=== PATIENT | female | born 1935 | race Caucasian/White ===

== ENCOUNTER → 2017-12-14 07:53 | Outpatient (BNVA) | payer MEDICARE, SELFPAY | PROVIDERS: PCP Family Medicine; Referring Provider Family Medicine; Visit Provider Surgery | DX: R69 Illness, unspecified (principal) ==

== ENCOUNTER 2017-12-14 09:03 | Day surgery (SDC) | payer MEDICARE, SELFPAY ==
[2017-12-14 09:36] VITALS: BP 133/74; PULSE 89; RESP 18; TEMP 37; O2SAT 92
[2017-12-14] MEDS: Lactated Ringers 1,000 ML 30 ML IV (09:45)
--- NOTE | 2017-12-14 10:32 | W.PM.DSUDISC ---
Discharge Plan Disposition Patient Disposition: HOME Condition: Good Discharge Details Reason For Visit: Colorectal cancer screening Attending Provider: Fabien Glover Primary Care Provider: Helen Montez Home Meds and New Rx's Prescriptions: Continue aspirin 81 MG tablet,delayed release (DR/EC) 81 mg PO DAILY RF: 0 ibuprofen 200 MG tablet 200 mg PO DAILY PRNRF: 0 psyllium husk 480 GM powder 1 - 2 appful PO DAILY PRNQty: 1 RF: 0 fluticasone 16 GM spray,suspension 2 puff NS DAILY Qty: 3 RF: 4 pravastatin 20 MG tablet 20 mg PO DAILY Qty: 90 RF: 4 fluticasone-salmeterol [Advair Diskus] 1 EACH blister with device 1 puff Inhalation BID Qty: 3 RF: 4 levalbuterol tartrate [Xopenex HFA] 15 GM HFA aerosol inhaler 1 - 2 puff Inhalation QID PRNQty: 1 RF: 6 diphenhydramine HCl 25 MG capsule 1 tab PO PRN PRNRF: 0 Discharge Instructions Instructions: Colonoscopy (DC) Activity:: Activity as Tolerated Diet:: As Tolerated Discharge Orders Discharge Orders: Discharge Order (Routine); Ordered 12/14/17 Ordered By: Fabien Glover DS: Diagnosis Discharge Diagnosis (1) Personal history of colon cancer: Status: Acute Asessment and Plan: Plan for colonoscopy for colorectal cancer screening
--- NOTE | 2017-12-14 10:36 | COLE_ITS ---
Date of service: 12/14/17 Time of Service: 10:34 Colonoscopy Report Date of procedure: 12/14/17 Pre-op diagnosis general: Personal history cancer of the colon Post-op diagnosis procedure note: other (1. Mild sigmoid diverticulosis 2. Sigmoid colon polyp) Procedure: Colonoscopy to the ileocolonic anastomosis Surgeon: Fabien Glover Anesthesia proc note operative: MAC (Salom[place] Cedeno CRNA ASA 3; Mallampati class II) Estimated blood loss (mL): 1 Pathology: other (Sigmoid colon polyp) Complications: None Disposition: same day Indications: 82-year-old female presenting for colorectal cancer screening by colonoscopy. She has a personal history of colon cancer and personal history of colon polyps. She has been asymptomatic since her last colonoscopy. She has no family history of colorectal cancer. Prep: Miralax/Dulcolax (Prep quality excellent) Findings: In examining the colon from cecum to anus, the patient was noted to have some mild sigmoid diverticulosis, and a single polyp was identified in the sigmoid colon it was less than 1 cm in greatest diameter. Polyp was removed by cold biopsy forceps. No other abnormalities were noted during the colonoscopy. Procedure Description: The patient was seen in the day surgery waiting area. Her identification was confirmed, and procedure check. She was then brought to the procedure room. Monitoring for telemetry, blood pressure, oxygen saturation, and end tidal CO2 monitoring were applied. An appropriate time out was performed to confirm, identification, allergies, medication, procedure, was performed. Sedation was titrated for affect by the [employer] VEHIC[employer] LICENSE CLERK; Once adequate sedation was achieved, I performed a inspection of the external perineum, and a digitial rectal examination. No significant external abnormalities were noted. On digital rectal examination, there was no blood, no masses, good rectal tone. I advanced the colonoscope from the anus to the ileocolonic anastomosis. The anastomosis was recognized by the villi of the small bowel. The scope was then withdrawn in circumferential manner from the anastomosis to the rectum. In examining the colon the patient was noted to have mild sigmoid diverticulosis, and a small less than 1 cm polyp was found in the sigmoid colon and removed by cold biopsy forceps. The scope was then withdrawn into the rectum, and retroflexed. No abnormalities were noted of the rectum or anorectal junction. The scope was then withdrawn, terminating the procedure. There were no complications during the procedure, and the patient tolerated the procedure well. She was returned to the day surgery recovery area in good condition. Plan: Will continue with routine screening for colorectal cancer according to current consensus guidelines, which is currently 10 years.
--- NOTE | 2017-12-14 10:55 | BOWEL_PTH ---
PATIENT: Araceli Hurt LOC: [facility] U#:[id number] AGE/SX: 82/F ROOM: RE12/14/[address]: Fabien Glover DO : 1935 BED: DIS: 12/14/2017 SPEC #: [id number] RECD: 12/14/17 12:54 STATUS: JUAN REQ #: [id number] JAMEE: 12/14/17 10:[address]: Fabien Glover DEPT: Surgical Specimen RECD BY: Sonja Gomez ENTERED: 12/14/17 12:54 SP TYPE: Bowel OTHR DR: Helen Montez MD Tissues: 1 - BIOPSY BOWEL Procedures: GROSS AND MICRO LEVEL 4 Comments: [id number]
[2017-12-14 11:30] VITALS: BP 117/64; PULSE 62; RESP 16; TEMP 36.3; O2SAT 98
== END 2017-12-14 12:01 | disposition home or self-care (01) ==
PROVIDERS: PCP Family Medicine; Visit Provider Surgery
PROC: 0DJD8ZZ Inspection of Lower Intestinal Tract, Via Natural or Artificial Opening Endoscopic (ICD-10-PCS; CPT 45378; principal; 2017-12-14 11:00)
DX: Z12.11 Encounter for screening for malignant neoplasm of colon (principal); Z85.038 Personal history of other malignant neoplasm of large intestine; K57.30 Diverticulosis of large intestine without perforation or abscess without bleeding; K63.5 Polyp of colon
CPT/HCPCS: 45380; 88305

== ENCOUNTER 2018-02-16 11:44 | Outpatient (CLI) | payer MEDICARE, SELFPAY ==
[2018-02-16 13:22] LABS: Absolute Basophil Count 0.03 k/cumm (0.0-0.2); Absolute Eosinophil Count 0.27 k/cumm (0.0-0.7); Absolute Lymphocyte Count 0.96 k/cumm (1.2-3.4); Absolute Monocyte Count 0.47 k/cumm (0.11-0.7); Absolute Neutrophil Count 3.61 k/cumm (1.2-6.7); Basophils % 0.6; Eosinophils % 5.1; HCT 40.6 % (36.0-46.0); HGB 13.4 g/dL (12.0-15.5); Mean Corpuscular Hemoglobin 31.9 pg (27.0-33.0); Mean Corpuscular Volume 96.7 fL (80-95); Mean Platelet Volume 10.2 fL (8.0-11.0); Monocytes % 8.8; Neutrophils % 67.5; Platelet Count 241 x1000/uL (130-400); RBC Distribution Width 12.3 % (11.7-14.6); White Blood Cell Count 5.34 k/cumm (4.4-10.8)
[2018-02-16 13:24] LABS: Bilirubin Negative (Negative); Blood Trace-intact (Negative); Clarity Clear; Glucose Negative (Negative); Ketones Negative (Negative); Leukocyte Esterase Small (Negative); Nitrite Negative (Negative); Urobilinogen 0.2 EU/dL (Up TO 0.2)
[2018-02-16 13:51] LABS: Bacteria Few HPF (Negative); C & S Indicated? Yes; Casts Negative LPF (Negative); Crystals Negative HPF (Negative); Epithelial Cells Few HPF (Negative); Mucus Negative (Negative); Other Cells Few Renal (Negative); RBC 0-2 (0-2)
[2018-02-16 13:52] LABS: ALT 15 U/L (12-78); AST 18 U/L (15-37); Albumin 3.8 g/dL (3.4-5.0); Alkaline Phosphatase 54 U/L (46-116); Anion Gap 9.6 mmol/L (3-11); BUN 11 mg/dL (7-18); Bilirubin, Total 0.6 mg/dL (0.2-1.0); CO2 28.4 mmol/L (21.0-32.0); CREATININE 0.78 mg/dL (0.55-1.02); Calcium 9.4 mg/dL (8.5-10.1); Chloride 100 mmol/L (98-107); Glucose 91 mg/dL (70-100); Sodium 138 mmol/L (136-145); Total Protein 6.7 g/dL (6.4-8.2)
[2018-02-17 14:35] LABS: Albumin 56.9 % (55.8-66.1); Total Protein 6.4 g/dl (6.3-8.2)
== END 2018-02-16 12:04 ==
PROVIDERS: PCP Family Medicine; Visit Provider Family Medicine
DX: R63.4 Abnormal weight loss (principal); R35.0 Frequency of micturition
CPT/HCPCS: 80053; 87077; 81003; 81015; 84165; 85025; 87086; 87186

== ENCOUNTER 2018-02-22 01:21 | Outpatient (CLI) | payer MEDICARE, SELFPAY ==
--- NOTE | 2018-02-22 13:15 | DI.CT_ITS ---
SYMPTOMS/DIAGNOSIS: ABNORMAL WEIGHT LOSS, H/O COLON CA, R63.4 CT SCAN OF THE CHEST, ABDOMEN AND PELVIS: CT scan of the chest, abdomen and pelvis was performed according to protocol. There are no priors available for comparison. CT SCAN OF THE ABDOMEN AND PELVIS: The liver is normal in size. No suspicious hepatic masses are seen. There are tiny hypodensities seen in the liver. They are too small for further characterization, but likely reflect small cysts. The gallbladder is negative. No biliary ductal dilatation. The portal and superior mesenteric veins are patent. The pancreas, spleen and adrenal glands are unremarkable. The kidneys show normal and symmetric enhancement. No evidence of a solid renal mass or obstruction. The urinary bladder is intact. The reproductive organs are grossly unremarkable except for calcified uterine masses, likely reflecting fibroids. There is atherosclerosis of the abdominal aorta but no aneurysmal dilatation is seen. No significant abdominal or pelvic adenopathy, ascites or pneumoperitoneum is present. There are postsurgical changes of a bowel anastomosis in the right upper quadrant. The bowel shows no evidence of obstruction or inflammation. No evidence of a bowel mass is seen. Incidental note is made of a diverticulum arising from the second portion of the duodenum. Degenerative changes are seen in the spine. IMPRESSION: 1. No evidence of abdominal or pelvic metastatic disease. 2. No evidence of an acute abdomen. CT SCAN OF THE CHEST: There is atherosclerosis of the thoracic aorta. No aneurysm or dissection is seen. The heart size is within normal limits. No significant pericardial effusion is present. Coronary artery calcifications are present. There is no significant thoracic adenopathy. No pleural effusion or pneumothorax is identified. The lungs are clear. No pulmonary nodules or infiltrates are seen. The tracheobronchial tree is unremarkable. No aggressive osseous lesions are seen. IMPRESSION: No evidence of thoracic metastatic disease.
[2018-02-22] MEDS: Omnipaque 350 MG/ML 50 ML BTL IJ (14:57)
[2018-02-22] MEDS: Omnipaque 350 MG/ML 100 ML BTL IJ (14:58)
[2018-02-22] MEDS: Breeza Beverage 473 ML BTL PO (14:58)
== END 2018-02-22 01:41 ==
PROVIDERS: PCP Family Medicine; Visit Provider Family Medicine
DX: R63.4 Abnormal weight loss (principal); Z85.038 Personal history of other malignant neoplasm of large intestine; Z12.89 Encounter for screening for malignant neoplasm of other sites
CPT/HCPCS: 74177; 71260; J3490; Q9967

== ENCOUNTER 2018-09-28 00:17 | Outpatient (CLI) | payer MEDICARE, SELFPAY ==
--- NOTE | 2018-09-28 11:00 | DI.MAMMO_ITS ---
SYMPTOMS/DIAGNOSIS: SCREENING, Z12.31 MAMMOGRAM: Mammograms were interpreted according to the usual protocol including computer analysis with CAD system, tomosynthesis and C view imaging. The breast tissue is of moderate radiodensity. When compared with previous examinations, increased density in the lateral portion of the left breast is unchanged. There is no dominant mass. There are no suspicious calcifications. SUMMARY: No evidence of malignancy, Category I, yearly screening mammography is recommended. Breast density Category B. SA ASSESSMENT OF FINDINGS: Negative. Category 1. Patient will receive a letter notifying them of these results. BI-RADS category B. There are scattered areas of fibroglandular density.
== END 2018-09-28 00:37 ==
PROVIDERS: PCP Family Medicine; Visit Provider Family Medicine
DX: Z12.31 Encounter for screening mammogram for malignant neoplasm of breast (principal)
CPT/HCPCS: 77063; 77067

== ENCOUNTER 2018-12-08 11:54 | Outpatient (CLI) | payer MEDICARE, SELFPAY ==
[2018-12-08 12:32] LABS: Abs Immature Grans 0.01 k/cumm (0.0-0.09); Absolute Basophil Count 0.02 k/cumm (0.0-0.2); Absolute Eosinophil Count 0.11 k/cumm (0.0-0.7); Absolute Lymphocyte Count 0.92 k/cumm (1.2-3.4); Absolute Monocyte Count 0.28 k/cumm (0.11-0.7); Basophils % 0.5; Eosinophils % 2.5; HGB 13.5 g/dL (12.0-15.5); Immature Grans % 0.2; Lymphocytes % 21.2; Mean Corp. HGB Concentration 32.1 g/dL (32.0-36.0); Mean Corpuscular Volume 96.6 fL (80-95); Mean Platelet Volume 9.9 fL (8.0-11.0); Monocytes % 6.5; Neutrophils % 69.1; Platelet Count 266 x1000/uL (130-400); RBC 4.35 m/cumm (4.00-5.20); RBC Distribution Width 12.4 % (11.7-14.6); White Blood Cell Count 4.34 k/cumm (4.4-10.8)
[2018-12-08 15:00] LABS: ALT 27 U/L (14-59); AST 18 U/L (15-37); Alkaline Phosphatase 54 U/L (46-116); Anion Gap 8.3 mmol/L (3-11); BUN 9 mg/dL (7-18); Bilirubin, Total 0.4 mg/dL (0.2-1.0); CO2 29.7 mmol/L (21.0-32.0); CREATININE 0.72 mg/dL (0.55-1.02); Calcium 9.6 mg/dL (8.5-10.1); Calculated LDL 149 mg/dL; Chloride 102 mmol/L (98-107); Cholesterol 244 mg/dL (50-200); Glucose 104 mg/dL (70-100); HDL Cholesterol 80 mg/dL (40-60); Potassium 4.1 mmol/L (3.5-5.1); Sodium 140 mmol/L (136-145); Total Protein 6.9 g/dL (6.4-8.2); Triglyceride 78 mg/dL (30-150)
== END 2018-12-08 12:14 ==
PROVIDERS: PCP Family Medicine; Visit Provider Family Medicine
DX: R63.4 Abnormal weight loss (principal); E78.5 Hyperlipidemia, unspecified
CPT/HCPCS: 36415; 80053; 80061; 85025

== ENCOUNTER 2020-07-05 03:49 | Outpatient (CLI) | payer MEDICARE, SELFPAY ==
--- NOTE | 2020-07-05 11:10 | DI.MAMMO_ITS ---
EXAM: MAMMO SCREENING CLINICAL HISTORY: screening,Z12.39 TECHNIQUE: Mammograms were interpreted according to the usual protocol including computer analysis w [employer] CAD system, tomosynthesis and C-view imaging. COMPARISON: 2010 through 2018 FINDINGS: The breasts are composed of scattered fibroglandular densities, Breast Density category B. No suspicious masses or suspicious microcalcifications are seen. Vascular calcifications are inciden tally noted. No skin thickening or abnormal axillary lymph nodes are seen. There has been no significant change from prior exams. IMPRESSION: BI-RADS Category 1, Negative mammogram Continued annual screening should be based on patient's clinical status given age. Breast Density - Category B, scattered fibroglandular densities. A negative radiographic report should not delay biopsy if a dominant or clinically suspicious mass is present. Up to ten percent of cancers are not identified on mammography. A negative report may reinforce clinical impression. Adenosis and dense breasts may obscure an underlying neoplasm. False positive reports average 6 to 10%. Patient will receive a letter notifying them of these results.
== END 2020-07-05 04:09 ==
PROVIDERS: PCP Family Medicine; Visit Provider Family Medicine
DX: Z12.31 Encounter for screening mammogram for malignant neoplasm of breast (principal)
CPT/HCPCS: 77063; 77067

== ENCOUNTER 2020-09-25 03:46 | Outpatient (CLI) | payer MEDICARE, SELFPAY ==
[2020-09-25 09:01] LABS: Abs Immature Grans 0.01 10^3/uL (0.0-0.06); Absolute Basophil Count 0.05 10^3/uL (0.0-0.2); Absolute Eosinophil Count 0.26 10^3/uL (0.0-0.7); Absolute Lymphocyte Count 1.28 10^3/uL (1.2-3.4); Absolute Neutrophil Count 1.96 10^3/uL (1.2-6.7); Basophils % 1.3; Eosinophils % 6.6; HCT 39.3 % (36.0-46.0); HGB 12.6 g/dL (11.2-15.7); Immature Grans % 0.3; Lymphocytes % 32.3; MCH 30.4 pg (27.0-33.0); MCHC 32.1 % (32.0-36.0); MCV 94.9 fL (80-95); MPV 9.7 fL (8.0-11.0); Monocytes % 10.1; Neutrophils % 49.4; Nucleated RBC 0 %; Platelet Count 249 10^3/uL (130-400); RBC 4.14 10^6/uL (3.93-5.22); RDW 12.4 % (11.7-14.6); RDW-SD 43.4 fL; WBC 3.96 10^3/uL (4.4-10.8)
[2020-09-25 09:03] LABS: ESR 7 mm/hr (0-30)
[2020-09-25 09:56] LABS: ALT 16 U/L (14-59); AST 18 U/L (15-37); Albumin 3.4 g/dL (3.4-5.0); Alkaline Phosphatase 54 U/L (46-116); Anion Gap 6.9 mmol/L (3-11); BUN 10 mg/dL (7-18); Bilirubin, Total 0.4 mg/dL (0.2-1.0); C-Reactive Protein 0.11 mg/dL (0.0-0.3); CO2 30.1 mmol/L (21.0-32.0); CREATININE 0.6 mg/dL (0.55-1.02); Calcium 9.3 mg/dL (8.5-10.1); Chloride 104 mmol/L (98-107); Ferritin 177 ng/mL (8-252); Glucose 104 mg/dL (74-106); Potassium 4.1 mmol/L (3.5-5.1); Sodium 141 mmol/L (136-145); Total Protein 6.5 g/dL (6.4-8.2)
== END 2020-09-25 03:47 | disposition home or self-care (01) ==
LOC: LBO 03:46
PROVIDERS: PCP Family Medicine; Visit Provider Family Medicine
DX: R63.4 Abnormal weight loss (principal); G25.81 Restless legs syndrome; J44.9 Chronic obstructive pulmonary disease, unspecified; J45.909 Unspecified asthma, uncomplicated
CPT/HCPCS: 36415; 80053; 85652; 82728; 85025; 86140

== ENCOUNTER 2020-11-25 20:41 | Outpatient (REF) | payer MEDICARE, SELFPAY ==
[2020-11-27 13:33] LABS: COVID-19 RT-PCR UVMMC Result Negative (Negative)
== END 2020-11-25 20:42 | disposition home or self-care (01) ==
LOC: NCHCN 20:41
PROVIDERS: PCP Family Medicine; Visit Provider Family Medicine
DX: Z11.52 Encounter for screening for COVID-19 (principal); Z20.822 Contact with and (suspected) exposure to COVID-19
CPT/HCPCS: U0003

== ENCOUNTER 2020-12-18 01:11 | Outpatient (CLI) | payer MEDICARE, SELFPAY ==
[2020-12-18] MEDS: Omnipaque 350 MG/ML 50 ML BTL PO (11:28)
[2020-12-18 11:29] LABS: CREATININE 0.6 mg/dL (0.55-1.02)
[2020-12-18] MEDS: Breeza Beverage 473 ML BTL PO ×2 (11:29→11:30)
[2020-12-18] MEDS: Omnipaque 350 MG/ML 100 ML BTL IJ (12:48)
[2020-12-18] MEDS: Normal Saline - Diluent 50 ML VIAL IV ×2 (12:48→12:49)
[2020-12-18] MEDS: Normal Saline Flush 10 ML SYR IVP (12:49)
--- NOTE | 2020-12-18 12:50 | DI.CT_ITS ---
Exam(s) CT CHEST/ABD/PEL W EXAM: CT CHEST/ABD/PEL W CLINICAL HISTORY: abnl wt loss,r63.4,h/o colon ca TECHNIQUE: Imaging Protocol: Axial computed tomography images with coronal and sagittal reformatted images were created and reviewed CONTRAST MATERIAL: Intravenous: Omnipaque 350 Contrast volume:100 mL Oral: Yes FINDINGS: CHEST: Tracheobronchial tree: Patent where visualized. Pulmonary parenchyma: No consolidation or dominant measurable mass. No architectural distortion. No p ulmonary nodules. Visualized thyroid gland: Unremarkable. Mediastinum and Sara: No dominant adenopathy or fluid collection. Hiatal hernia. Pleura: No effusion or pneumothorax. Heart: The heart is not dilated. Coronary artery calcifications. No pericardial effusion. Aorta: Thoracic aorta non-dilated. Atherosclerosis. Lymph nodes: Within normal limits. Soft tissues: Unremarkable. Bones:No evidence of osseous metastatic disease. ABDOMEN: Liver: Normal density. There is a stable tiny hypodensity in the right lobe of the liver. It is too small for further characterization. No other hepatic masses are seen. Portal, Superior Mesenteric, and Splenic Veins: Unremarkable. Gallbladder and Biliary Tract: No radiodense calculus or dilation. Pancreas: Normal density, no abnormal calcifications or inflammatory process. There is stable tiny hy podensities in the head of the pancreas. The largest measures 5 mm. Spleen: Normal. Adrenals: No masses seen. Kidneys: Normal size, contour and axis. No radiodense stones or obstructive uropathy. No masses seen. Abdominal Aorta: Abdominal portion non-dilated. Atherosclerosis. Bowel: No obstruction or bowel wall thickening. No evidence of appendicitis. There is a hiatal herni a. There is a duodenal diverticulum. Diverticulosis of the sigmoid colon is noted but no evidence o f acute diverticulitis. Peritoneal Cavity: No ascites, collection or mesenteric inflammatory response. No free air. Lymph Nodes: Within normal limits. Bones: Degenerative changes. No lytic or sclerotic lesions. Soft Tissues: Small midline supraumbilical fat containing anterior abdominal wall hernia. PELVIS: Bladder: Symmetric distention, no gross wall thickening. Reproductive Organs: Calcified uterine fibroids. Lymph Nodes: Within normal limits. Bones: Within normal limits. IMPRESSION: 1. No evidence of abdominal or pelvic metastatic disease. 2. No evidence of thoracic metastatic disease. 3. No acute chest, abdominal or pelvic process. RADIATION DOSE DELIVERED: 1,268.16mGy.cm Total DLP DATA REPOSITORY: All CT scans at this facility are submitted to the National Radiology Data Registry (NRDR) Dose Index Registry (DIR) with the [employer] (ACR). RADIATION OPTIMIZATION: All CT scans at this facility use at least one of these dose optimization te chniques: automated exposure control; mA and/or kV adjustment per patient size (includes targeted exa ms where dose is matched to clinical indication); or iterative reconstruction.
== END 2020-12-18 01:31 ==
PROVIDERS: PCP Family Medicine; Visit Provider Family Medicine
DX: R63.4 Abnormal weight loss; Z85.038 Personal history of other malignant neoplasm of large intestine
CPT/HCPCS: 74177; 71260; 82565; J3490; Q9967

== ENCOUNTER 2021-07-18 01:17 | Outpatient (CLI) | payer MEDICARE, SELFPAY ==
--- NOTE | 2021-07-18 10:20 | DI.MAMMO_ITS ---
Exam(s) MAMMO SCREENING EXAM: MAMMO SCREENING CLINICAL HISTORY: screening,Z12.39. TECHNIQUE: Bilateral full field digital CC and MLO mammographic images were obtained with 3D tomosyn thesis and utilizing computer aided detection (CAD). COMPARISON: Prior mammograms were reviewed, the most recent being June 2020. FINDINGS: There has been no significant change in the appearance and distribution of the fibroglandular tissue. There are no new spiculated masses nor malignant appearing microcalcification groups. Benign-appearing micro and macrocalcifications are again noted. There is no significant architectural distortion nor skin thickening-retraction. IMPRESSION: Stable benign findings. No radiographic evidence of malignancy. BI-RADS Category 2 - Benign Findings Breast Density - Category B - Scattered areas of fibroglandular density Breast density Category C or D implies that the patient has dense breast tissue. Dense breast tissue can make it harder to find cancer on a mammogram. Dense breast tissue is also associated with an incr eased risk of breast cancer. This information about the result of the mammogram report was provided to the patient to raise their awareness. Use this report when you speak with the patient about their risks for breast cancer, which includes their family history. At that time, you may recommend additional screening tests (Ultrasoun d or MRI) as these tests may add significant information. A negative radiographic report should not delay biopsy if a dominant or clinically suspicious mass is present. Up to ten percent of cancers are not identified on mammography. A negative report may reinforce clinical impression. Adenosis and dense breasts may obscure an underlying neoplasm. False positive reports average 6 to 10%. Patient will receive a letter notifying them of these results.
== END 2021-07-18 01:37 ==
PROVIDERS: PCP Nurse Practitioner; Visit Provider Family Medicine
DX: Z12.31 Encounter for screening mammogram for malignant neoplasm of breast (principal)
CPT/HCPCS: 77063; 77067

== ENCOUNTER → 2022-03-31 11:31 | Outpatient (BNVA) | payer MEDICARE, SELFPAY | PROVIDERS: PCP Nurse Practitioner Family; Referring Provider Nurse Practitioner; Visit Provider Surgery | DX: Z12.11 Encounter for screening for malignant neoplasm of colon (principal); K57.30 Diverticulosis of large intestine without perforation or abscess without bleeding; R63.4 Abnormal weight loss; H90.3 Sensorineural hearing loss, bilateral; Z85.038 Personal history of other malignant neoplasm of large intestine | CPT/HCPCS: 99242 ==

== ENCOUNTER 2023-05-13 23:23 | Emergency (ER) | payer MEDICARE, SELFPAY ==
[2023-05-13] VITALS (9 sets, daily range): BP systolic 138–173; BP diastolic 61–80; PULSE 91–103; RESP 13–31; TEMP 36.4; O2SAT 83–100
--- NOTE | 2023-05-13 23:15 | RT.EKG_ITS ---
APPROVED REPORT Exam: Resting ECG Reason for Exam: difficulty breathing Patient Location: E HR:93 bpm ECG Measurements Heart Rate 93 AXIS DE 196 P 62 QRSd 92 QRS -27 QT 356 T 38 QTc 444 Conclusion Sinus rhythm...normal P axis, V-rate 60- 99 Consider anteroseptal infarct...Q >30mS, dimin R, V1-V2 Physician: minimal depression in V3/V4/ No elevation
--- NOTE | 2023-05-13 23:31 | W.ED.GENAD ---
Discharge Plan Disposition Patient Disposition: Home Condition: Good Discharge Details Clinical Impression: COPD exacerbation Primary Care Provider: Catalina Roth ED Provider: Cassius Newberry Home Meds and New Rx's Prescriptions: New prednisone 50 mg tablet 50 mg PO DAILY Qty: 5 0RF No Action fluticasone propion-salmeterol [Advair Diskus] 250-50 mcg/dose blister with device 1 inh Inhalation BID Qty: 60 6RF albuterol sulfate [Ventolin HFA] 90 mcg/actuation HFA aerosol inhaler 2 puff inhalation QID PRN (Reason: shortness of breath or wheezing) Qty: 8.5 2RF ibuprofen 200 MG tablet 200 mg PO DAILY PRN Discharge Instructions Instructions: COPD (Chronic Obstructive Pulmonary Disease) (ED) Additional Instructions: At this time you had a mild exacerbation of your COPD. Your chest x-ray showed no evidence of pneumonia, you tested negative for flu and COVID, your heart markers were normal. Please take the inhaler, 2 puffs every 4-6 hours for the next few days. Please take the prednisone as directed. It has been sent to your pharmacy on file.If you notice any worsening of your symptoms, or any new symptoms such as vomiting, diarrhea, fever, chills, shortness of breath, chest pain, numbness, weakness, or fainting , please return immediately to the emergency department for reevaluation. Please follow up with your primary care provider as soon as possible for reassessment and reevaluation. As always, it was a pleasure participating in your medical care today. Referrals: Catalina Roth NP [Primary Care Provider] - [facility] General Date/Time Provider Initiated Documentation: 05/13/23 23:31. [facility] Narrative: This is a very pleasant 87-year-old female with a past medical history of multiple antibiotic allergies, high cholesterol, asthma/COPD, presents today for evaluation of shortness of breath and cough. Patient states that she usually gets short of breath at night, and this is improved by her inhaler, however tonight she became short of breath and maintain that shortness of breath even despite her inhaler use. She does admit to mild cough. She is notably hard of hearing. EMS was called, vital signs were normal at time of assessment, she did have a mild wheeze, she was given a breathing treatment, and this notably improved her symptoms. She denies any chest pain whatsoever. She denies any history of heart disease. She denies any fever or chills. No other complaints at this time. No arm neck or shoulder pain. Related Data Home Medications Medication Instructions Recorded Confirmed ibuprofen 200 mg tablet 200 mg PO DAILY PRN 10/13/12 03/11/23 Advair Diskus 250 mcg-50 mcg/dose 1 inh inhalation BID #60 ea 09/10/22 03/11/23 powder for inhalation (fluticasone propion-salmeterol) albuterol sulfate 90 mcg/actuation 2 puff inhalation QID PRN 09/10/22 03/11/23 aerosol inhaler (Ventolin HFA) shortness of breath or wheezing #8.5 grams prednisone 50 mg tablet 50 mg PO DAILY #5 tabs 05/14/23 Previous Rx's Medication Instructions Recorded Advair Diskus 250 mcg-50 mcg/dose 1 inh inhalation BID #60 ea 09/10/22 powder for inhalation (fluticasone propion-salmeterol) albuterol sulfate 90 mcg/actuation 2 puff inhalation QID PRN 09/10/22 aerosol inhaler (Ventolin HFA) shortness of breath or wheezing #8.5 grams prednisone 50 mg tablet 50 mg PO DAILY #5 tabs 05/14/23 Allergies Allergy/AdvReac Type Severity Reaction Status Date / Time amoxicillin Allergy Unknown SKIN RASH Verified 03/11/23 10:34 doxycycline Allergy Unknown Verified 03/11/23 10:34 Penicillins Allergy Unknown Verified 03/11/23 10:34 Tetracyclines Allergy Unknown Verified 03/11/23 10:34 clarithromycin AdvReac Unknown Verified 03/11/23 10:34 Macrolide Antibiotics AdvReac Unknown Verified 03/11/23 10:34 General Stated Complaint: SOB JACLYN: 3 Review of Systems All systems reviewed & are unremarkable except as noted in HPI and below Exam Narrative Exam Narrative: 1.Const: Well-nourished, Well-developed, appearing stated age 2.Eyes: PERRL, no conjunctival injection, and symmetrical lids. 3.ENT: Atraumatic external nose and ears. Moist MM. Neck: Symmetric, trachea midline, No thyromegaly. 4.CVS: +S1/S2, No murmurs or gallops. Peripheral pulses 2+ and equal in all extremities. Brisk capillary refill in all extremities. 5.RESP: Mild wheeze in the right lower lung field. Occasional scattered rhonchi. 6.GI: Soft, Nontender/Nondistended, No hepatosplenomegaly. No guarding or rebound. 7.MSK: Normocephalic/Atraumatic, Extremities w/o deformity or ttp No cyanosis or clubbing, Normal movement of all extremities 8.Skin: Warm, Dry. No rashes or lesions. 9.Neuro: tube wrapper II-XII grossly intact. Sensation grossly intact, no focal neurologic deficits. 10.Psych: (AAO) x3. Appropriate mood and affect Course Vital Signs Vital signs: Vital Signs Temperature 36.4 C L 05/13/23 23:25 Pulse 101 H 05/13/23 23:25 Respiratory Rate 24 05/13/23 23:25 Blood Pressure 169/80 H 05/13/23 23:25 Pulse Oximetry 97 05/13/23 23:25 Temperature 36.4 C L 05/13/23 23:25 Pulse 101 H 05/13/23 23:25 Respiratory Rate 24 05/13/23 23:25 Respiratory Effort Normal, Short of Breath 05/13/23 23:26 Blood Pressure 169/80 H 05/13/23 23:25 Pulse Oximetry 97 05/13/23 23:25 Oxygen Delivery Method Room Air 05/13/23 23:25 Oxygen Flow Rate 0 05/13/23 23:25 Pain Level 0 05/13/23 23:25 Medical Decision Making This is a very pleasant 87-year-old female with a past medical history of multiple antibiotic allergies, high cholesterol, asthma/COPD, presents today for evaluation of shortness of breath and cough. Patient states that she usually gets short of breath at night, and this is improved by her inhaler, however tonight she became short of breath and maintain that shortness of breath even despite her inhaler use. She does admit to mild cough. She is notably hard of hearing. EMS was called, vital signs were normal at time of assessment, she did have a mild wheeze, she was given a breathing treatment, and this notably improved her symptoms. She denies any chest pain whatsoever. She denies any history of heart disease. She denies any fever or chills. No other complaints at this time. No arm neck or shoulder pain. Exam demonstrates well-appearing female, notably hard of hearing. She has mild wheeze in the right lower lung field. No significant intercostal retractions. Differential is highest for COPD exacerbation, pneumonia, cardiac etiology less likely. Will monitor closely evaluate for these etiologies and reassess. EKG demonstrates sinus rhythm with minimal anterior depression. No elevation. 12:32 AM Although the patient was almost asymptomatic when she got here, she states that she still feels much better at this time. Wheezes have resolved. Oxygenation maintains excellent at 98 to 100%. She feels well and feels comfortable going home. Laboratory workup demonstrates no white count bandemia or left shift. Electrolytes normal, VBG normal with no evidence of respiratory acidosis. COVID flu and RSV are negative, troponin normal. EKG benign. Chest x-ray shows no evidence of large pneumonia. Patient feels well and would like to go home. Patient will be discharged with a new inhaler in case her old one was out. Discussed red flags for which to return. No indications for antibiotics, no evidence of significant pneumonia. I have extensively reviewed the treatment plan and discharge instructions with the patient. I have addressed all patient concerns at this time. The patient was made aware of what symptoms to monitor for that would warrant a return to the emergency department. Discussed the plan with the patient, they demonstrate verbal understanding and agreement with our assessment and plan at this time. The documentation in this chart was dictated using [employer] dictation software. Please excuse any dictation errors. FINDINGS: Lungs: Unremarkable. No consolidation. Pleural spaces: Unremarkable. No pleural effusion. No pneumothorax. Heart/Mediastinum: Unremarkable. No cardiomegaly. Vasculature: Moderate atherosclerotic calcification of the aortic arch. Bones/joints: Moderate degenerative changes of the spine and shoulders. No acute fracture. IMPRESSION: No acute infiltrate Thank you for allowing us to participate in the care of your patient. 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; LEFT EYE H/O colonoscopy (12/14/17) Dr Glover, recommended repeat in three years. H/O colonoscopy with polypectomy History of colon resection History of nasal polypectomy History of nasal polypectomy PROCEDURES RESECT EXT SEG LG BOWEL, 1999 NASAL OPERATION;removal of nasal polyp Family History Mother Heart disease BYPASS X 3 Multiple sclerosis Father Hypertensive disorder, systemic arterial Sister Hypertensive disorder, systemic arterial Brother No problems noted. Brother No problems noted. Social History (Updated 09/15/22 @ 09:36 by Pia Galeano) Smoking/Tobacco Use Status: Never Second Hand Exposure: No Smoking risk assessment performed?: Yes Alcohol Intake: former Drug use: Never Substance use type: does not use Counseling provided: none Caregiver/Support person: No Household members: none Housing: apartment Communication Needs: Hard of Hearing, Sign Language and Corrective Lenses Pets and animals: Yes Pets and animals: cat(s) Sexually active: No Current gender identity: female What is your relationship status?: How often do you talk on the phone with friends or family?: once per week How often do you get together with friends or relatives?: once per week How often do you attend muslim or temple services?: 1-3 times per year Do you belong to any clubs or organized social groups?: no Panel score (0-1 are the most socially isolated patients): 0 What type of physical activity do you participate in: walking Duration: < 15 minutes/day Frequency: 3-4 times per week Brenda/Anabaptism: None Special brenda needs: No Seatbelt use: always Drive intox or ride w/intox drivers license examiner: No Do you feel safe at home: Yes
[2023-05-13] MEDS: methylPREDNISolone SUCC 125 MG VIAL IVP (23:36)
[2023-05-13] MEDS: Albuterol/Ipratropium 3 ML UPD VIAL UPD (23:37)
[2023-05-13 23:42] LABS: BE (Venous) 5 mmol/L (-2-3); HCO3 (Venous) 30 mmol/L (23-28); O2 Sat (Venous) 75 %; TCO2 (Venous) 27 mmol/L (24-29); pCO2 (Venous) 49 mmHg (41-51); pH (Venous) 7.39 (7.31-7.41); pO2 (Venous) 40 mmHg
[2023-05-13 23:43] LABS: Abs Immature Grans 0.01 10^3/uL (0.0-0.06); Absolute Basophil Count 0.06 10^3/uL (0.0-0.2); Absolute Eosinophil Count 0.53 10^3/uL (0.0-0.7); Absolute Lymphocyte Count 1.56 10^3/uL (1.2-3.4); Absolute Neutrophil Count 3.23 10^3/uL (1.2-6.7); HCT 41.5 % (36.0-46.0); HGB 13.4 g/dL (11.2-15.7); Immature Grans % 0.2; Lymphocytes % 26.5; MCHC 32.3 % (32.0-36.0); MCV 93 fL (80-95); MPV 9.1 fL (8.0-11.0); Monocytes % 8.5; Neutrophils % 54.8; Platelet Count 242 10^3/uL (130-400); RBC 4.46 10^6/uL (3.93-5.22); RDW 12.5 % (11.7-14.6); RDW-SD 43.4 fL; WBC 5.89 10^3/uL (4.4-10.8)
[2023-05-14] VITALS (41 sets, daily range): BP systolic 116–150; BP diastolic 42–62; PULSE 87–137; RESP 13–33; O2SAT 94–100
[2023-05-14 00:01] LABS: ALT 17 U/L (14-59); AST 19 U/L (15-37); Albumin 3.4 g/dL (3.4-5.0); Alkaline Phosphatase 58 U/L (46-116); BUN 9 mg/dL (7-18); Bilirubin, Total 0.3 mg/dL (0.2-1.0); CREATININE 0.6 mg/dL (0.55-1.02); Calcium 9.3 mg/dL (8.5-10.1); Chloride 102 mmol/L (98-107); Estimated GFR 87.91 (mL/min/1.73m2); Glucose 124 mg/dL (74-106); Potassium 3.1 mmol/L (3.5-5.1); Sodium 140 mmol/L (136-145); Total Protein 6.9 g/dL (6.4-8.2); Troponin I < 50 ng/L (< or =60)
--- NOTE | 2023-05-14 00:05 | DI.RAD_ITS ---
Exam(s) XR PORTABLE CHEST AP EXAM: XR PORTABLE CHEST AP CLINICAL HISTORY: sob, cough, eval for pneumonia/copd TECHNIQUE: 2D digital imaging was performed of the chest. One image was obtained. An AP view was ob tained. COMPARISON: CR CHEST 2 VIEWS PA,LAT from 09/28/2017 FINDINGS: MEDIASTINUM: Normal. HEART: Normal. PULMONARY VASCULATURE: Normal. LUNGS: Clear. PLEURAL SPACE: No pleural effusion or pneumothorax. BONE:Within normal limits for the patient's age. OTHER FINDINGS:Normal. IMPRESSION: No acute pulmonary findings. DATA REPOSITORY: RADIATION DOSE DELIVERED:
[2023-05-14 00:21] LABS: COVID-19 PCR Negative (Negative); Influenza A PCR Negative (Negative); Influenza B PCR Negative (Negative); RSV PCR Negative (Negative)
[2023-05-14 00:25] LABS: Source Nasopharynx
--- NOTE | 2023-05-14 00:41 | DI.VRAD_ITS ---
PROCEDURE INFORMATION: Exam: XR Chest Exam date and time: 05/14/2023 12:09 AM Age: 87 years old Clinical indication: Cough and shortness of breath; Additional info: SOB, cough, eval for pneumonia/copd TECHNIQUE: Imaging protocol: Radiologic exam of the chest. Views: 1 view. COMPARISON: CT CHEST/ABD/PEL W 12/18/2020 12:49 PM FINDINGS: Lungs: Unremarkable. No consolidation. Pleural spaces: Unremarkable. No pleural effusion. No pneumothorax. Heart/Mediastinum: Unremarkable. No cardiomegaly. Vasculature: Moderate atherosclerotic calcification of the aortic arch. Bones/joints: Moderate degenerative changes of the spine and shoulders. No acute fracture. IMPRESSION: No acute infiltrate Dictated and Authenticated by: Oz Page MD. Ordering:TIKI Hammonds MD
[2023-05-14] MEDS: Albuterol HFA 8 GM 60 PUFF INH IH (03:23)
== END 2023-05-14 06:36 | disposition home or self-care (01) ==
PROVIDERS: Emergency Provider Student in an Organized Health Care Education/Training Program; PCP Nurse Practitioner Family
DX: J44.1 Chronic obstructive pulmonary disease with (acute) exacerbation (principal); R06.02 Shortness of breath; R05.1 Acute cough; E78.5 Hyperlipidemia, unspecified
CPT/HCPCS: 36415; 80053; 82805; 87637; 93005; 94640; 96374; 99284; 71045; 84484; 85025; 93010; 99283; J2930; J7620

== ENCOUNTER 2023-12-28 20:55 | Emergency (ER) | payer MEDICARE, SELFPAY ==
[2023-12-28] VITALS (11 sets, daily range): BP systolic 154; BP diastolic 82; PULSE 81–113; RESP 15–22; TEMP 36.4; O2SAT 88–100
--- NOTE | 2023-12-28 21:00 | RT.EKG_ITS ---
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
--- NOTE | 2023-12-28 21:00 | RT.EKG_ITS ---
APPROVED REPORT Exam: Resting ECG Reason for Exam: short of breath Patient Location: E HR:89 bpm ECG Measurements Heart Rate 89 AXIS ID 59 P 0 QRSd 105 QRS -6 QT 430 T 242 QTc 525 Conclusion Sinus rhythm...normal P axis, V-rate 60- 99 Inferior infarct, acute...ST>0.10mV, T upright, II III aVF Prolonged QT interval...QTc >500mS Baseline artifact regular narrow complex
--- OUTSIDE RECORDS SUMMARY | 2023-12-28 21:01 | XMS_ITS | Encounter Summary ---
Author Organization [facility] Address [address] [place] [address] Care Team Providers Care Care Advocate Name Role Phone Helen Montez MD Primary Care Provider [phone] Reason for Visit * Reason Onset Date Comments Research 01/05/2019 Encounter Details Date Type Department Care Team (Late st Contact Info) Description 01/05/2019 Telephone [facility] Ophthalmology - [facility] [address] [place] [address] Sean Mendoza MD [address] [facility], [address] [place] [phone] Research Social History Tobacco Use Types Packs/Day Years Used Date Smoking Tobacco: Never Smokeless Tobacco: Never Sex and Gender Information Value Date Recorded Sex Assigned at Not on file Gender Identity Not on file Sexual Orientation Not on file documented as of this encounter Functional Status Functional Status Response Date of Assess ment Is this person blind or does he/she have serious difficulty seeing even when wearing glasses? Yes 9 Because of a physical, menta l, or emotional condition, does this person have difficulty doing errands alone such as visiting a doctor's office or shopping? No 12/27/2018 Cognitive Status Response Date of Assessm ent Because of a physical, menta l, or emotional condition, does this person have serious difficulty concentrating, remembering, or making decisions? No 12/27/2018 documented as of this encounter Miscellaneous Notes * Telephone Encounter - Nilda Gagnon - 01/05/[address] [facility] - Office of Clinical Trials Telephone Call [facility]: [phone] Protocol: Panda-2 Treating Senior Account Executive: Dr. Sean Mendoza Date: 01/05/2019 Reason For Call: Questions about study participation I was asked by the retina scheduling team to give Araceli a call to discuss the Panda-2 study. Araceli had been seen at [facility] on 12/27 and the Panda-[address] study was discussed [address] Dr. Mendoza. The patient had to leave the clinic because of time constraints with her transportation and had asked the the scheduling team follow up with her daughter Chanelle to schedule her next appointment. Chanelle's voicemail has been full and Araceli has difficulty hearing over the phone, so a letter was sent out to Araceli to ask that she have her daughter call the office to schedule her next appointment. Araceli's shelter case manager, Logan, called the office on 01/03 to better understand the study. I did not initially realize that Logan had originally called until speaking with Araceli, who requested I give Logan a call. I left a message with Logan at 8am on 01/06. documented in this encounter Plan of Treatment Not on file documented as of this encounter Visit Diagnoses Not on filedocumented in this encounter Care Teams Care Advocate Relationship Specialty Start Date End Date Helen oMntez MD [address] [place] [address] PCP - General 12/15/17 documented as of this encounter
--- OUTSIDE RECORDS SUMMARY | 2023-12-28 21:01 | XMS_ITS | Encounter Summary ---
Author Organization [facility] Address [address] [place] [address] Care Team Providers Care Medical Staff Director Name Role Phone Unavailable Primary Care Provider Unavailabl e Encounter Details Date Type Department Care Team (Late st Contact Info) Description 04/04/2009 Orders Only [facility] Laboratory Services - [facility] ([facility]) [address] [place], [place] [phone] Nicolas Walters MD [address] [place] [id number] Social History Tobacco Use Types Packs/Day Years Used Date Smoking Tobacco: Never Assessed Sex and Gender Information Value Date Recorded Sex Assigned at Not on file Gender Identity Not on file Sexual Orientation Not on file documented as of this encounter Plan of Treatment Not on file documented as of this encounter Procedures Procedure Name Priority Date/Time Associated Diagnosis Comments SURGICAL PATHOLOGY Routine 04/04/2009 0:00 EST documented in this encounter Results * SURGICAL PATHOLOGY (04/04/2009 0:00 EST) Pathology Report: SURGICAL PATHOLOGY REPORT ? Reports generated via electronic interface contain original data; ? however they are lacking the format of the original report. ? Caution should be taken when reading/interpreti ng unformatted reports. ? Name: ? SAMSON, AMAURY J ? Accession #: ? [id number] ? : ? 1935 (Age: 73) ??F ? Collect Date: ? 04/04/2009 ? Location: ? [facility] ? Receive Date: ? 04/04/2009 ? Provider: NICOLAS WALTERS MD ? Copy to: YOEL RODARTE MD ? Final Pathologic Diagnosis: ? Nasal cavity, left, polypectomy: ? - Inflammatory polyp. ? Document reviewed and electronically signed by: ? GIANNI J BUTNOR MD ? Report ??Date: 04/08/2009 15:23 ? By the signature above, the attending physician certifies that he/she has ? personally conducted a gross and/or microscopic examination of the described ? specimens and rendered or confirmed the above diagnosis. ? Specimen(s) Received: ? L nasal polyp ? Clinical History: ? Clinical diagnosis code: 471.0 ? Gross Description: ? Received in formalin labelled Amaury Hurt are two vaughan-white, mucoid ?? polypoid tissues, 1.1 x 0.3 x 0.1 cm and 1.5 x 0.9 x 0.2 cm. ??Both tissues are ?? submitted intact in a single cassette. ??(L. Mendez)/ljn ? End of Report ? [facility] 04/04/2009 04/04/2009 16: 06 EST Nicolas Walters MD PATHOLOGY ORDERABLES Performing Organization Address City/State/[facility] Co de Phone Number [facility] [address] [place] [address] documented in this encounter Visit Diagnoses Not on filedocumented in this encounter
--- OUTSIDE RECORDS SUMMARY | 2023-12-28 21:01 | XMS_ITS | Encounter Summary ---
Author Organization [facility] Address [address] [place] [address] Care Team Providers Care Car Servicer Name Role Phone Hung Rodarte MD Primary Care Provider Unavail able Encounter Details Date Type Department Care Team (Late st Contact Info) Description 08/10/2006 Results Only [facility] [place] [address] [place] [address] Nicolas Draper MD [address] [place] [phone] Social History Tobacco Use Types Packs/Day Years Used Date Smoking Tobacco: Never Assessed Sex and Gender Information Value Date Recorded Sex Assigned at Not on file Gender Identity Not on file Sexual Orientation Not on file documented as of this encounter Plan of Treatment Not on file documented as of this encounter Procedures Procedure Name Priority Date/Time Associated Diagnosis Comments SURGICAL PATHOLOGY Routine 08/10/2006 0:00 EDT documented in this encounter Results * SURGICAL PATHOLOGY (08/10/2006 0:00 EDT) Pathology Report: SURGICAL PATHOLOGY REPORT Reports generated via electronic interface contain original data; however they are lacking the format of the original report. Caution should be taken when reading/interpreti ng unformatted reports. Name: ? AMAURY DAVIES ? Accession #: ? [id number] ? : ? 1935 (Age: 71) ??F ? Collect Date: ? 08/10/2006 ? Location: ? [facility] ? Receive Date: ? 08/11/2006 ? Provider: NICOLAS DRAPER MD Copy to: HUNG RODARTE MD ? Final Pathologic Diagnosis: ? Nasal polyps, polypectomy: 1. ?Fragments of nasal polyp with marked edema. 2. ? Mild chronic and subacute inflammation. Document reviewed and electronically signed by: HUYEN LOVETT MD Report ??Date: 08/13/2006 16:13 By the signature above, the attending physician certifies that he/she has personally conducted a gross and/or microscopic examination of the described specimens and rendered or confirmed the above diagnosis. Specimen(s) Received: ? Nasal polyps Clinical History: ? Nasal polyps Gross Description: ? Received in formalin labelled Licha and nasal polyps are three vaughan mucoid tissue fragments which vary in size from 1.0 x 0.7 x 0.2 cm to 1.5 x 1.5 x 0.4 cm. They are entirely submitted in one cassette. (Dr. Romero ??BSF)/[facility] End of Report [facility] 08/10/2006 08/11/2006 15: 27 EDT Nicolas Draper MD PATHOLOGY ORDERABLES [facility] [address] [place] [address] documented in this encounter Visit Diagnoses Not on filedocumented in this encounter Care Teams Car Servicer Relationship Specialty Start Date End Date Hung Rodarte MD PCP - General 04/08/09 12/14/17 documented as of this encounter
--- OUTSIDE RECORDS SUMMARY | 2023-12-28 21:01 | XMS_ITS | Encounter Summary ---
Author Organization [facility] Address [address] [place] [address] Care Team Providers Care Evaporator Name Role Phone Helen Montez MD Primary Care Provider [phone] Reason for Visit * Reason Onset Date Comments Appointment Related 12/29/2018 Encounter Details Date Type Department Care Team (Late st Contact Info) Description 12/29/2018 Telephone [facility] Ophthalmology - [facility] [address] [place] [address] Sean Mendoza MD [address] [facility], [address] [place] [phone] Appointment Related Social History Tobacco Use Types Packs/Day Years [...] encounter Miscellaneous Notes * Telephone Encounter - Roberto Carlos-Sienna Harrell - 01/03/2019 1535 EDT Logan the pt case advocate calling to get some information regarding the study and what she would need to do. Ethan please call the case advocate back with study info. * Telephone Encounter - Sienna Mi - 12/29/2018 1048 EDT Tried calling pt's daughter on Wednesday 12/27 and today 12/29 unable to speak to her or leave a message as the voicemail was full. We are sending a letter to the patient today. documented in this encounter Plan of Treatment Not on file documented as of this encounter Visit Diagnoses Not on filedocumented in this encounter Care Teams Evaporator Relationship Specialty Start Date End Date Helen Montez MD [address] [place] [address] PCP - General 12/15/17 documented as of this encounter
--- OUTSIDE RECORDS SUMMARY | 2023-12-28 21:01 | XMS_ITS | Encounter Summary ---
Author Organization [facility] Address [address] [place] [address] Care Team Providers Care Gasket Notcher Name Role Phone Hung Lopez MD Primary Care Provider Unavail able Encounter Details Date Type Department Care Team (Late st Contact Info) Description 11/22/2012 Results Only [facility] Services - [facility] ([facility]) [address] [place] [address] Huber Sanon, DO [address] [facility] [address] [place], [place] [id number] Social History Tobacco Use Types Packs/Day Years Used Date Smoking Tobacco: Never Assessed Sex and Gender Information Value Date Recorded Sex Assigned at Not on file Gender Identity Not on file Sexual Orientation Not on file documented as of this encounter Plan of Treatment Not on file documented as of this encounter Procedures Procedure Name Priority Date/Time Associated Diagnosis Comments SURGICAL PATHOLOGY Routine 11/22/2012 9:17 EDT documented in this encounter Results * SURGICAL PATHOLOGY (11/22/2012 9:17 EDT) Pathology Report: SURGICAL PATHOLOGY REPORT Reports generated via electronic interface contain original data; however they are lacking the format of the original report. Caution should be taken when reading/interpreti ng unformatted reports. Name: ? AMAURY DAVIES ? Accession #: ? [id number] ? : ? 1935 (Age: 77) ??F ? Collect Date: ? 11/22/2012 ? Location: ? [facility] ? Receive Date: ? 11/23/2012 ? Provider: HUBER SANON DO Copy to: MENDOZA BESS MD ? Final Pathologic Diagnosis: A. ??COLON, ASCENDING, POLYP, BIOPSY: - ??Fragments of hyperplastic polyp. B. COLON, 25 CM, POLYP, BIOPSY: - ??Hyperplastic polyp. C. COLON, 20 CM, POLYP, BIOPSY: - ??Hyperplastic polyp. - ??Deeper levels have been examined. Document reviewed and electronically signed by: HUYEN LOVETT MD Report ??Date: 11/25/2012 14:38 By the signature above, the attending physician certifies that he/she has personally conducted a gross and/or microscopic examination of the described specimens and rendered or confirmed the above diagnosis. Specimen(s) Received: A. ?Ascending colon polyp B. ? 25 cm polyp C. ? 20 cm polyp Clinical History: Hx colon polyps; colon ca Gross Description: A. ?Received in formalin labelled with proper patient identification (initials C, M) and ascending colon polyp are ??four light vaughan tissues (0.2 x 0.2 x 0.1 cm to 0.4 x 0.3 x 0.2 cm). Entirely submitted in block A1-A2. ?? B. ? Received in formalin labelled with proper patient identification (initials C, M) and 25 cm polyp is a single light vaughan tissue fragment (0.5 x 0.2 x 0.1 cm). Submitted intact in block B1. C. ?Received in formalin labelled with proper patient identification (initials C, M) and 20 cm polyp is a single light vaughan tissue fragment (0.4 x 0.2 x 0.1 cm). Submitted intact in block C1. Mary Beth Bowden 11/23/2012 11:35 AM End of Report [facility] 11/22/2012 9:17 EDT 11/23/2012 9:17 EDT Huber Sanon DO PATHOLOGY ORDER FELECIA [facility] [address] [place] [address] documented in this encounter Visit Diagnoses Not on filedocumented in this encounter Care Teams Gasket Notcher Relationship Specialty Start Date End Date Hung Lopez MD PCP - General 04/08/09 12/14/17 documented as of this encounter
--- OUTSIDE RECORDS SUMMARY | 2023-12-28 21:01 | XMS_ITS | Encounter Summary ---
Author Organization [facility] Address [address] [place] [address] Care Team Providers Care Flame Burner Name Role Phone Helen Montez MD Primary Care Provider [phone] Encounter Details Date Type Department Care Team (Late st Contact Info) Description 11/26/2020 Lab Requisition [facility] Pathology & Laboratory Medicine - [facility] [address] [place] [address] Outr Resulting Lab, Provider Social History Tobacco Use Types Packs/Day Years Used Date Smoking Tobacco: Never Smokeless Tobacco: Never Interpersonal Safety Answer Date Record ed Physically Hurt Never 10/15/2019 Verbally Threaten Not on file 10/15/2019 Sex and Gender Information Value Date Recorded [...] No 12/27/2018 documented as of this encounter Plan of Treatment Not on file documented as of this encounter Procedures Procedure Name Priority Date/Time Associated Diagnosis Comments ZZCOVID-19 TEST [facility] PCR Today 11/25/2020 14:20 EDT COVID-19 TESTING Routine 11/25/2020 14:2 0 EDT documented in this encounter Results * COVID-19 TEST [facility] PCR (11/25/2020 14:20 EDT) Swab ENTIRE NASOPHARYNX / Unknown 11/25/2020 14:20 EDT 11/26/2020 15:32 EDT Provider Outr Resulting Lab MICROBIOLOGY - GENERAL ORDERABLES [facility] [address] [place] [address] * COVID-19 TESTING (11/25/2020 14:20 EDT) COVID-19 rt-PCR Result Negative Negative 11/27/2020 13:28 EDT [facility] Comment: This test has not been FDA cleared or approved. This test has been authorized by FDA under an EUA for use by authorized laboratories. This test has been authorized only for detection of nucleic acid from 2019-nCoV, not for any other viruses or pathogens. This test is only authorized for the duration of the declaration that circumstances exist justifying the authorization of emergency use of in vitro diagnostic tests for detection and/or diagnosis of 2019-nCoV under section 564(b)(1) of Act, 21 U.S.C ?? 360bbb-3(b) (1), unless the authorization is terminated or revoked sooner. Negative results do not preclude 2019-nCoV infection and should not be used as the sole basis for treatment or other patient management decisions. Negative results must be combined with clinical observations, patient history, and epidemiological information. This test was developed and its performance characteristics determined by [facility]. It has not been cleared or approved by the US Food and Drug Administration. FDA does not require this test to go through premarket FDA review. This test is used for clinical purposes. It should not be regarded as investigational or for research. This laboratory is certified under the Clinical Laboratory Improvement Amendments (CLIA) as qualified to perform high complexity clinical laboratory testing. This test is based on the [facility] COVID-19 Emergency Use Authorization (EUA) assay, with minor modification as defined by the FDA Performed on the [employer] Quantstudio 7 Flex RT-PCR System. This test was developed and its performance characteristics determined by [facility]. It has not been cleared or approved by the US Food and Drug Administration. FDA does not require this test to go through premarket FDA review. This test is used for clinical purposes. It should not be regarded as investigational or for research. This laboratory is certified under the Clinical Laboratory Improvement Amendments (CLIA) as qualified to perform high complexity clinical laboratory testing. This test is based on the CDC COVID-19 Emergency Use Authorization (EUA) assay, with minor modification as defined by the FDA Performed on the [employer] 7 Pro RT-PCR System. Performing Lab [facility] 11/27/2020 13:28 EDT [facility] Swab 11/25/2020 14:2 0 EDT 11/26/2020 15:32 EDT Provider Outr Resulting Lab MICROBIOLOGY - GENERAL ORDERABLES [facility] [address] [place] [address] documented in this encounter Visit Diagnoses Not on filedocumented in this encounter Care Teams Flame Burner Relationship Specialty Start Date End Date Helen Montez MD [address] [place] [address] PCP - General 12/15/17 documented as of this encounter
--- OUTSIDE RECORDS SUMMARY | 2023-12-28 21:01 | XMS_ITS | Encounter Summary ---
Author Organization [facility] Address [address] [place] [address] Care Team Providers Care Business Office Associate Name Role Phone Helen Montez MD Primary Care Provider [phone] Reason for Referral * (Routine) - New Request Specialty Diagnoses / Procedures Referred By Contac t Referred To Contact Diagnoses Exudative age-related macular degeneration of left eye with active choroidal neovascularization ([facility]) Procedures FLUORESCEIN ANGIOGRAPHY Sean Mendoza MD [address] [address] Referral ID Status Reason Start Date Expiration Date V isits Requested Visits Authorized [id number] New Request 12/27/2018 1 1 * (Routine) - New Request Specialty Diagnoses / Procedures Referred By Contac t Referred To Contact Diagnoses Exudative age-related macular degeneration of left eye with active choroidal neovascularization ([facility]) Procedures EYE PHOTOGRAPHY (FUNDUS) Sean Mendoza MD [address] [address] Referral ID Status Reason Start Date Expiration Date V isits Requested Visits Authorized [id number] New Request 12/27/2018 1 1 * (Routine) - New Request Specialty Diagnoses / Procedures Referred By Contac t Referred To Contact Diagnoses 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 History of PCIOL both eyes and YAG capsulotomy both eyes. 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 Eye Problem NPV - Exudative AMD left eye. History of PCIOL both eyes and YAG capsulotomy both eyes. HPI Location: Left eye Pain: 0 - No pain Quality: Blurry Severity: Moderate Duration: Months Timing: Constant Lasts: Continuous Context: NPV - Exudative AMD left eye, history of cataract surgery both eyes and YAG capsulotomy both eyes. Modifying factors: Vision blurry left eye. Vision good right eye. No pain. Floaters right eye Associated Signs & Symptoms: No drops. Visual Fluctuations: Attestation: Base Eye Exam Visual Acuity (Snellen - Linear) Right Left Dist sc 20/50 20/60 -1 Dist ph sc NI NI Tonometry (Applanation, 13:13) Right Left Pressure 21 18 Pupils Pupils Light APD Right PERRL 4 None Left PERRL 4 None Visual Kat (Counting fingers) Right Left Full Full Extraocular Movement Right Left Full, Ortho Full, Ortho Neuro/Psych Oriented x3: Yes Mood/Affect: Normal Dilation Both eyes: 1.0% Mydriacyl, 2.5% Phenylephrine @ 13:13 Slit Lamp and Fundus Exam Slit Lamp Exam Right Left Lids/Lashes Normal Normal Conjunctiva/Sclera White and quiet White and quiet Cornea endo pigment and sulzman nodules endo pigment and sulzman nodules Anterior Chamber Deep and quiet Deep and quiet Iris Round and reactive Round and reactive Lens Posterior chamber intraocular lens Posterior chamber intraocular lens Vitreous Posterior vitreous detachment Posterior vitreous detachment Fundus Exam Right Left Disc Peripapillary atrophy Peripapillary atrophy C/D Ratio 0.5 0.5 Macula small drusen, extrafoveal GA yellow foveal pigment, juxtafoveal nasal GA Vessels Normal Normal Periphery attached attached Please refer to large retinal drawing. IMAGING: OCT REPORT Indications: Age-related Macular Degeneration Findings: Right Eye Left Eye extrafoveal RPE and outer retinal atrophy, drusen no fluid extrafoveal RPE and outer retinal atrophy, subfoveal SR HRM and ?trace SRF IVFA for AMD Color: GA both eyes, yellow foveal lesion left eye Dye: CNV SN to fovea on ICG left eye and leakage SN to fovea on IVFA left eye. Window defects through GA and staining of drusen in both eyes. Original test to be found in patients shadow chart DIAGNOSES: 1. Exudative age-related macular degeneration of left eye with active choroidal neovascularization ([facility]) EYE PHOTOGRAPHY (FUNDUS) FLUORESCEIN ANGIOGRAPHY 2. 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 PVD (posterior vitreous detachment), both eyes Assessment Advanced Exudative AMD with GA sparing fovea right eye No sign of CNV on exam, OCT, IVFA and ICGA. Start AREDS 2 vitamins to reduce risk of vision loss Monitor Wet AMD left eye CNV SN to fovea on ICGA, leaking on IVFA. Recommend starting treatment with intravitreal injections to reduce risk of vision loss. Discussed alternatives: Avastin today vs attempting enrolling in Panda trial < 1 week. 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 Will think about trial enrollment. Return for PANDA trial testing or anti-VEGF injection within one week ideally, accompanied by her daughter. PVD both eyes Longstanding, asymptomatic Retina attached w/o predisposing lesions Monitor Beautiful pseudophakia both eyes Return for OCT, OCT-A 3x3 and OCT-A 6x6 If patient and daughter would like to enroll in trial, repeat IVFA (transit left eye) per protocol. I have reviewed the past medical, family, social and surgical history. I have reviewed the meds, allergies, and problem list. I performed my own HPI and reviewed the ROS. I personally completed the exam. The patient was instructed to call our office or go to emergency room if worse vision, worse symptoms, or new/other concerns arise. Sean Mendoza MD I am scribing for Dr. Sean Mendoza MD while he is personally performing the service. 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 Ordered: 12/27/2018 EYE PHOTOGRAPHY (FUNDUS) Ophthalmology Routine Exudative age-related macular degeneration of left eye with active choroidal neovascularization ([facility]-CMS) Ordered: 12/27/2018 FLUORESCEIN ANGIOGRAPHY Ophthalmology Routine Exudative age-related macular degeneration of left eye with active choroidal neovascularization (HCC-CMS) Ordered: 12/27/2018 documented as of this encounter Visit Diagnoses Diagnosis Exudative age-related macular degeneration of left eye with active choroidal neovascularization (HCC-CMS)- Primary 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 Medication Sig Dispensed Refills Start Date End Date pravastatin (PRAVACHOL) 20 mg tablet Take 20 mg by mouth daily. ibuprofen (MOTRIN) 200 mg tablet Take 200 mg by mouth every 6 hours as needed for Pain. fluticasone propionate (FLONASE) 50 mcg/actuation nasal spray Instill 100 mcg into both nostrils daily. methylcellulose (FIBER THERAPY LAXATIVE ORAL) Take 1 Cap by mouth daily. aspirin chewable 81 mg tablet Take 81 mg by mouth daily. fluticasone propion-salmeterol (ADVAIR) 250-50 mcg/dose diskus inhaler Inhale 1 Puff as directed every 12 hours. albuterol 90 mcg/actuation inhaler Inhale 2 Puffs as directed every 6 hours as needed for Wheezing. added in this encounter Eye Exam Visual Acuity (Snellen - Linear) Right eye Left eye Dist sc 20/50 20/60 -1 Dist ph sc NI NI Tonometry (Applanation, 13:13) Right eye Left eye Pressure 21 18 Pupils Pupils Light APD Right eye PERRL 4 None Left eye PERRL 4 None Visual Kat (Counting fingers) Right eye Left eye Full Full Extraocular Movement Right eye Left eye Full, Ortho Full, Ortho Neuro/Psych Oriented x3: Yes Mood/Affect: Normal Dilation Both eyes: 1.0% Mydriacyl, 2 .5% Phenylephrine @ 13:13 Slit Lamp Exam Right eye Left eye Lids/Lashes Normal Normal Conjunctiva/Sclera White and quiet White and bill et Cornea endo pigment and sulzman nodules endo pigment and sulzman nodules Anterior Chamber Deep and quiet Deep and quiet Iris Round and reactive Round and eduardo ctive Lens Posterior chamber in traocular lens Posterior chamber intraocular lens Vitreous Posterior vitreous detachment Po sterior vitreous detachment Fundus Exam Right eye Left eye Disc Peripapillary atrophy Peripapill papi atrophy C/D Ratio 0.5 0.5 Macula small drusen, extrafoveal GA yel low foveal pigment, juxtafoveal nasal GA Vessels Normal Normal Periphery attached attached Care Teams Business Office Associate Relationship Specialty Start Date End Date Helen Montez MD [address] [place] [address] PCP - General 12/15/17 documented as of this encounter
--- OUTSIDE RECORDS SUMMARY | 2023-12-28 21:01 | XMS_ITS | Encounter Summary ---
Author Organization [facility] Address [address] [place] [address] Care Team Providers Care Front Office Medical Assistant Name Role Phone Hung Lopez MD Primary Care Provider Unavail able Encounter Details Date Type Department Care Team (Latest Contact Info) Description 12/14/2017 15:53 EDT - 12/14/2017 23:59 EDT Hospital Encounter [address] [address] Unknown, Provider, Discharge Disposition: Auto Discharge Social History Tobacco Use Types Packs/Day Years Used Date Smoking Tobacco: Never Assessed Sex and Gender Information Value Date Recorded Sex Assigned at Not on file Gender Identity Not on file Sexual Orientation Not on file documented as of this encounter Discharge Disposition Disposition Code Departure Means Destination Auto Discharge Home documented in this encounter Plan of Treatment Not on file documented as of this encounter Visit Diagnoses Not on filedocumented in this encounter Care Teams Front Office Medical Assistant Relationship Specialty Start Date End Date Hung Lopez MD PCP - General 04/08/09 12/14/17 documented as of this encounter
--- OUTSIDE RECORDS SUMMARY | 2023-12-28 21:01 | XMS_ITS | Encounter Summary ---
Author Organization [facility] Address [address] [place] [address] Care Team Providers Care Networker Name Role Phone Hung Lopez MD Primary Care Provider Unavail able Encounter Details Date Type Department Care Team (Late st Contact Info) Description 12/14/2017 Results Only [facility] [phone] Misty Glover, DO [address] [place] [address] Social History Tobacco Use Types Packs/Day Years Used Date Smoking Tobacco: Never Assessed Sex and Gender Information Value Date Recorded Sex Assigned at Not on file Gender Identity Not on file Sexual Orientation Not on file documented as of this encounter Plan of Treatment Not on file documented as of this encounter Procedures Procedure Name Priority Date/Time Associated Diagnosis Comments SURGICAL PATHOLOGY Routine 12/14/2017 16 :30 EDT documented in this encounter Results * SURGICAL PATHOLOGY (12/14/2017 16:30 EDT) Pathology Report: SURGICAL PATHOLOGY REPORT Reports generated via electronic interface contain original data; however they are lacking the format of the original report. Caution should be taken when reading/interpret ing unformatted reports. Name: ? AMAURY DAVIES ? Accession #: ? [id number] ? : ? 1935 (Age: 82) ??F ? Collect Date: ? 12/14/2017 ? Location: ? [facility] ? Receive Date: ? 12/14/2017 ? Provider: MISTY GLOVER DO Copy to: MENDOZA BESS MD ? Final Pathologic Diagnosis: COLON, SIGMOID, POLYP, BIOPSY:- Benign colonic mucosa with superficial hyperplastic change. Document reviewed and electronically signed by: RIYA YATES MD Report ??Date: 12/16/2017 15:49 By the signature above, the attending physician certifies that he/she has personally conducted a gross and/or microscopic examination of the described specimens and rendered or confirmed the above diagnosis. Specimen(s) Received: Sigmoid colon polyp Clinical History: Screening, hx of colon Ca; clinical diagnosis code: ??Z85.038 Gross Description: ? Received in formalin labelled with proper patient identification (initials C, M) and sigmoid colon polyp are two vaughan-pink tissue fragments (0.3 x 0.2 x 0.1 cm and 0.4 x 0.2 x 0.1 cm). Submitted in toto in 1. CLEM Rodriguez (ASCP) 12/14/2017 5:44 PM End of Report [facility] 12/14/2017 16:3 0 EDT 12/14/2017 16:30 EDT Misty Glover DO PATHOLOGY ORDERABLES [facility] [address] [place] [address] documented in this encounter Visit Diagnoses Not on filedocumented in this encounter Care Teams Networker Relationship Specialty Start Date End Date Hung Lopez MD PCP - General 04/08/09 12/14/17 documented as of this encounter
--- OUTSIDE RECORDS SUMMARY | 2023-12-28 21:01 | XMS_ITS | Encounter Summary ---
Author Organization [facility] Address [address] [place] [address] Care Team Providers Care Trench Digging Machine Operator Name Role Phone Helen Montez MD Primary Care Provider [phone] Reason for Visit * Reason Onset Date Comments Research 01/11/2019 Encounter Details Date Type Department Care Team (Late st Contact Info) Description 01/11/2019 Telephone [facility] Ophthalmology - [facility] [address] [place] [address] Sean Mendoza MD [address] [facility], [address] [place] [phone] Research Social History Tobacco Use Types Packs/Day [...] * Telephone Encounter - Nilda Gagnon - 01/11/2019 0858 EDT [facility] - Office of Clinical Trials Telephone Call [facility]: [phone] Protocol: Panda-2 Treating Forest Economist: Sean Mendoza Date: 01/11/2019 Reason For Call: Follow up I spoke with Logan on 01/06 about Araceli's different treatment options including standard of care treatment and study enrollment. I gave her a brief overview of the study and offered to send her the consent form. I sent it to her email address ([email or web address]), but it bounced back after the first time sending it. I tried zipping the file and sending it again, but received an email sayingRemote Nutrition Counselor returned '[phone] [email or web address]; message too large for this organization. I emailed Logan on 01/09 explaining this, but have not heard back. I called her on 01/11 and left a message to ask for an alternative way to send the consent form to her and reiterate that Araceli should be treated through whichever pathway she chooses as soon as possible. documented in this encounter Plan of Treatment Not on file documented as of this encounter Visit Diagnoses Not on filedocumented in this encounter Care Teams Trench Digging Machine Operator Relationship Specialty Start Date End Date Helen Montez MD [address] [place] [address] PCP - General 12/15/17 documented as of this encounter
--- OUTSIDE RECORDS SUMMARY | 2023-12-28 21:01 | XMS_ITS | Encounter Summary ---
Author Organization [facility] Address [address] [place] [address] Care Team Providers Care Laboratory Technologist Name Role Phone Hung Rodarte MD Primary Care Provider Unavail able Encounter Details Date Type Department Care Team (Late st Contact Info) Description 10/04/2000 Results Only [facility] - Map conversion [address] [place] [address] Barry Clayton MD [address] [place] [id number] Social History Tobacco Use Types Packs/Day Years Used Date Smoking Tobacco: Never Assessed Sex and Gender Information Value Date Recorded Sex Assigned at Not on file Gender Identity Not on file Sexual Orientation Not on file documented as of this encounter Plan of Treatment Not on file documented as of this encounter Procedures Procedure Name Priority Date/Time Associated Diagnosis Comments SURGICAL PATHOLOGY Routine 10/04/2000 0:00 EDT documented in this encounter Results * SURGICAL PATHOLOGY (10/04/2000 0:00 EDT) Pathology Report: SURGICAL PATHOLOGY REPORT Reports generated via electronic interface contain original data; however they are lacking the format of the original report. Caution should be taken when reading/interpreti ng unformatted reports. Name: ? AMAURY DAVIES ? Accession #: ? [id number] ? : ? 1935 (Age: 65) ??F ? Collect Date: ? 10/04/2000 ? Location: ? [facility] ? Receive Date: ? 10/04/2000 ? Provider: BARRY CLAYTON MD Copy to: DAMION RODARTE MD ? Final Pathologic Diagnosis: A. ?Colon, 80 cm, polyp, polypectomy: 1. ?Tubulovillous adenoma. B. ?Colon, 40 cm, biopsy: 1. ?Hyperplastic polyp. Document reviewed and electronically signed by: Dalila Prado [facility] Report ??Date: 10/06/2000 17:34 By the signature above, the attending physician certifies that he/she has personally conducted a gross and/or microscopic examination of the described specimens and rendered or confirmed the above diagnosis. Specimen(s) Received: A. ?Polyps at 80 cm B. ?Bx at 40 cm Clinical History: ? Hx colon CA 3 yo - hemicolectomy Rt T 3 N1 colon Ca Gross Description: ? Received in Hollande's fixative labelled Licha and #1 polyp at 80 cm are three vaughan-corley friable soft tissue fragments ranging from 0.5 x 0.5 x 0.4 cm to 0.9 x 0.7 x 0.3 cm. ??The specimen is entirely submitted as (A). Received in Hollande's fixative labelled Licha and #2 bx at 40 cm is a vaughan irregular 0.7 x 0.3 x 0.2 cm soft tissue fragment. ??The specimen is entirely submitted as (B). ??(Santos Contreras)/edr End of Report [facility] 10/04/2000 10/04/2000 15: 37 EDT Barry Clayton MD PATHOLOGY ORDERABLES Performing Organization Address City/State/[facility] Co de Phone Number [facility] [address] [place] [address] documented in this encounter Visit Diagnoses Not on filedocumented in this encounter Care Teams Laboratory Technologist Relationship Specialty Start Date End Date Hung Rodarte MD PCP - General 04/08/09 12/14/17 documented as of this encounter
--- OUTSIDE RECORDS SUMMARY | 2023-12-28 21:01 | XMS_ITS | Clinical Summary ---
Author Organization [facility] Address [address] [place] [address] Care Team Providers Care Mobile Sales Assistant Name Role Phone Helen Montez MD Primary Care Provider [phone] Allergies Active Allergy Reactions Criticality Noted Date Comments Penicillins Rash 12/27/2018 Medications Medication Sig Dispensed Refills Start Date End Date Status albuterol 90 mcg/actuation inhaler Inhale 2 Puffs as directed every 6 hours as needed for Wheezing. Active fluticasone propion-salmeterol (ADVAIR) 250-50 mcg/dose diskus inhaler Inhale 1 Puff as directed every 12 hours. Active aspirin chewable 81 mg tablet Take 81 mg by mouth daily. Active methylcellulose (FIBER THERAPY LAXATIVE ORAL) Take 1 Cap by mouth daily. Active fluticasone propionate (FLONASE) 50 mcg/actuation nasal spray Instill 100 mcg into both nostrils daily. Active ibuprofen (MOTRIN) 200 mg tablet Take 200 mg by mouth every 6 hours as needed for Pain. Active pravastatin (PRAVACHOL) 20 mg tablet Take 20 mg by mouth daily. 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 12/28/2018 PVD (posterior vitreous detachment), both eyes 1 Surgical History Surgery Date Site/Laterality Comments COLONOSCOPY INTRAOCULAR LENS PROSTHESIS INSERTION Rig ht INTRAOCULAR LENS PROSTHESIS INSERTION Lef t Medical History Medical History Date Comments Cataract Family History Medical History Relation Comments No Known Father No Known Mother Relation Status Comments Father Mother Social History Tobacco Use Types Packs/Day Years Used Date Smoking Tobacco: Never Smokeless Tobacco: Never Interpersonal Safety Answer Date Record ed Physically Hurt Never 10/15/2019 Verbally Threaten Not on file 10/15/2019 Sex and Gender Information Value Date Recorded Sex Assigned at Not on file Gender Identity Not on file Sexual Orientation Not on file Obstetrics History Plan of Treatment Health Maintenance Due Date Last Done Comments RSV Immunization ( o r 60+ Years) (1 - 1-dose 60+ series) 1997 Fall Risk Screening 2002 COVID-19 Vaccine (2022-24 season) 2022 Care Teams Mobile Sales Assistant Relationship Specialty Start Date End Date Helen Montez MD [address] [place] [address] [facility] - General 12/15/17
--- OUTSIDE RECORDS SUMMARY | 2023-12-28 21:01 | XMS_ITS | Encounter Summary ---
Author Organization [facility] Address [address] [place] [address] Care Team Providers Care Vertical Punch Operator Name Role Phone Hung Lopez MD Primary Care Provider Unavail able Encounter Details Date Type Department Care Team (Late st Contact Info) Description 05/26/2002 Results Only [facility] - Maple conversion [address] [place] [address] Huber Sanon, DO [address] [facility] [address] [place], [place] [id number] Social History Tobacco Use Types Packs/Day Years Used Date Smoking Tobacco: Never Assessed Sex and Gender Information Value Date Recorded Sex Assigned at Not on file Gender Identity Not on file Sexual Orientation Not on file documented as of this encounter Plan of Treatment Not on file documented as of this encounter Procedures Procedure Name Priority Date/Time Associated Diagnosis Comments SURGICAL PATHOLOGY Routine 05/26/2002 0:00 EST documented in this encounter Results * SURGICAL PATHOLOGY (05/26/2002 0:00 EST) Pathology Report: SURGICAL PATHOLOGY REPORT Reports generated via electronic interface contain original data; however they are lacking the format of the original report. Caution should be taken when reading/interpreti ng unformatted reports. Name: ? AMAURY DAVIES ? Accession #: ? [id number] ? : ? 1935 (Age: 66) ??F ? Collect Date: ? 05/26/2002 ? Location: ? [facility] ? Receive Date: ? 05/26/2002 ? Provider: HUBER SANON DO Copy to: HUNG FALCON MD ? Final Pathologic Diagnosis: ? Colon, 80.0 cm, polypectomy: 1. ?Fragments of hyperplastic colonic mucosa. 2. ?No adenomatous tissue identified. ??See comment. Comment: ? Deeper sections have been examined and corroborate the diagnosis. ??(Dr. Thacker)/[facility] Document reviewed and electronically signed by: Wing Ley MD Report ??Date: 05/30/2002 15:04 By the signature above, the attending physician certifies that he/she has personally conducted a gross and/or microscopic examination of the described specimens and rendered or confirmed the above diagnosis. Specimen(s) Received: ? Polyp 80 cm Clinical History: ? H/O colon cancer Gross Description: ? Received in Hollande' s fixative labelled Licha and polyp 80 cm are multiple loose fragments of tissue that measure in aggregate 0.4 x 0.4 x 0.4 cm. The specimen is filtered and submitted entirely in one cassette. ??(Dr. Thacker)/[facility] End of Report [facility] 05/26/2002 05/26/2002 15: 56 EST Huber Sanon DO PATHOLOGY ORDER FELECIA [facility] [address] [place] [address] documented in this encounter Visit Diagnoses Not on filedocumented in this encounter Care Teams Vertical Punch Operator Relationship Specialty Start Date End Date Hung Lopez MD PCP - General 1/25/10 10/2/18 documented as of this encounter
--- OUTSIDE RECORDS SUMMARY | 2023-12-28 21:01 | XMS_ITS | Encounter Summary ---
Author Organization [facility] Address [address] [place] [address] Care Team Providers Care Solid Waste Analyst Name Role Phone Hung Lopez MD Primary Care Provider Unavail able Encounter Details Date Type Department Care Team (Late st Contact Info) Description 09/26/1999 Results Only [facility] - Maple conversion [address] [place] [address] Huber Sanon, DO [address] [facility] [address] [place], [place] [id number] Social History Tobacco Use Types Packs/Day Years Used Date Smoking Tobacco: Never Assessed Sex and Gender Information Value Date Recorded Sex Assigned at Not on file Gender Identity Not on file Sexual Orientation Not on file documented as of this encounter Plan of Treatment Not on file documented as of this encounter Procedures Procedure Name Priority Date/Time Associated Diagnosis Comments SURGICAL PATHOLOGY Routine 09/26/1999 0:00 EDT documented in this encounter Results * SURGICAL PATHOLOGY (09/26/1999 0:00 EDT) Pathology Report: SURGICAL PATHOLOGY REPORT Reports generated via electronic interface contain original data; however they are lacking the format of the original report. Caution should be taken when reading/interpreti ng unformatted reports. Name: ? AMAURY DAVIES ? Accession #: ? [id number] ? : ? 1935 (Age: 64) ??F ? Collect Date: ? 09/26/1999 ? Location: ? [facility] ? Receive Date: ? 09/26/1999 ? Provider: HUBER SANON DO Copy to: SHAQUILLE FALCON MD ? Final Pathologic Diagnosis: ? Terminal ileum, cecum, appendix and portion of right colon, resection: 1. ?Adenocarcinoma, moderately differentiated, with focal mucinous differentiation, maximum dimension 6.5 cm, invasive through muscularis propria into the serosa (AJCC:T3). ??See comment. ? - Surgical margins of resection negative for tumor. ?- Metastatic adenocarcinoma present in one out of fifteen lymph nodes (1/15) (AJCC:N1). 2. ?Appendix: ? - Hyperplastic polyp. - Subacute appendicitis and fibrous obliteration of the tip. ? Comment: ? The tumor is composed of glands demonstrating pleomorphic cells, gland formation and extravasation of mucin. ??There is also an acute inflammatory reaction adjacent to the tumor. ??The one metastatic focus is less than 0.05 mm and consists of glandular epithelium in the kamala sinus. ??Previous biopsy ([id number]) has also been reviewed and we concur with the diagnosis of tubulovillous adenoma with high grade dysplasia. ??The discrepancy between the biopsy diagnosis and the resection specimen represents sampling artifact.(Miranda Parker)/[facility] Document reviewed and electronically signed by: HUYEN LOVETT MD Report ??Date: 09/30/1999 15:43 By the signature above, the attending physician certifies that he/she has personally conducted a gross and/or microscopic examination of the described specimens and rendered or confirmed the above diagnosis. Specimen(s) Received: ? R colon Clinical History: ? Tubulovillous adenoma with high grade dysplasia Gross Description: ? Received in formalin labelled Licha and right colon is the product of a right hemicolectomy received partially opened. ??Staple lines are present at the proximal and distal margins. ??The terminal ileum measures 7.0 cm in length and 4.0 cm in internal circumference. ??The right colon measures approximately 15.0 cm in length by 7.0 cm in internal circumference. ??The appendix is present. It measures approximately 10.5 cm in length by 1.0 cm in diameter. ??There is a circumferential mass located approximately 6.0 cm from the distal margin. ??The mass measures 3.5 x 6.5 cm. ??The mass is firm and vaughan and is hemorrhagic at is periphery and friable. ??It has a central ulceration. ??The remaining right colonic mucosa appears light vaughan and has numerous folds in its mucosa. ??The terminal ileum mucosa is light vaughan, soft, and has numerous folds in its mucosa as well. ??The appendiceal, terminal ileum, and proximal cecal serosa is vaughan and smooth. ??The usual amount of pericolonic adipose tissue is present. ??There is a small amount of omental adhesion attached to the serosa immediately adjacent to the aforementioned mass. ??Longitudinal sectioning through the mass reveals extension through the muscularis propria up to the serosa. ??Blunt dissection of the mesentery reveals several firm potential lymph nodes which range in size from 1.1 x 0.9 x 0.6 cm to 0.7 x 0.4 x 0.3 cm. ??They are submitted as follows. BLOCK GRIGGS A1 ?Education Faculty Member section adjacent to distal margin A2 ?Education Faculty Member section adjacent to proximal margin A3 ?Two cross sections of appendix and bisected distal tip of appendix A4 ?Ileocecal valve A5-A7 ?Education Faculty Member sections of mass A8-A9 ?Single bisected premium representative section of the [id number] ? Two bisected lymph nodes, two per cassette A12-A15 ? Intact lymph nodes A16 ?Education Faculty Member section of terminal ileum A17 ?Education Faculty Member section of unaffected colon (Miranda Smith)/[facility] End of Report [facility] 09/26/1999 09/26/1999 15: 35 EDT Huber Sanon DO PATHOLOGY ORDER FELECIA [facility] [address] [place] [address] documented in this encounter Visit Diagnoses Not on filedocumented in this encounter Care Teams Solid Waste Analyst Relationship Specialty Start Date End Date Hung Lopez MD PCP - General 04/08/09 12/14/17 documented as of this encounter
--- OUTSIDE RECORDS SUMMARY | 2023-12-28 21:01 | XMS_ITS | Encounter Summary ---
Author Organization [facility] Address [address] [place] [address] Care Team Providers Care Silica Filter Operator Name Role Phone Hung Lopez MD Primary Care Provider Unavail able Encounter Details Date Type Department Care Team (Late st Contact Info) Description 08/21/1999 Results Only [facility] - Maple conversion [address] [place] [address] Huber Sanon, DO [address] [facility] [address] [place], [place] [id number] Social History Tobacco Use Types Packs/Day Years Used Date Smoking Tobacco: Never Assessed Sex and Gender Information Value Date Recorded Sex Assigned at Not on file Gender Identity Not on file Sexual Orientation Not on file documented as of this encounter Plan of Treatment Not on file documented as of this encounter Procedures Procedure Name Priority Date/Time Associated Diagnosis Comments SURGICAL PATHOLOGY Routine 08/21/1999 0:00 EDT documented in this encounter Results * SURGICAL PATHOLOGY (08/21/1999 0:00 EDT) Pathology Report: SURGICAL PATHOLOGY REPORT Reports generated via electronic interface contain original data; however they are lacking the format of the original report. Caution should be taken when reading/interpreti ng unformatted reports. Name: ? AMAURY DAVIES ? Accession #: ? [id number] ? : ? 1935 (Age: 64) ??F ? Collect Date: ? 08/21/1999 ? Location: ? [facility] ? Receive Date: ? 08/21/1999 ? Provider: HUBER SANON DO Copy to: SHAQUILLE FALCON MD ? Final Pathologic Diagnosis: A. ?Colon, right, lesion, biopsies: 1. 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 B. ?Colon, polyp, 45 cm, biopsy: 1. ?Tubular adenoma. C. ?Colon, polyp, 30 cm, biopsies: 1. ?Tubular adenoma. D. ?Colon, polyp, 15 cm, biopsies: ? 1. ??Hyperplastic polyp. Document reviewed and electronically signed by: EMMA THACKER MD Report ??Date: 08/25/1999 17:25 By the signature above, the attending physician certifies that he/she has personally conducted a gross and/or microscopic examination of the described specimens and rendered or confirmed the above diagnosis. Specimen(s) Received: A. ?Lesion R colon (#1) B. ?Polyp at 45 cm (#2) C. ?Polyp at 30 cm (#3) D. ?Polyp at 15 cm (#4) Clinical History: ? Anemia; heme (+) stool; anemia to Hgb 8.2 Gross Description: ? Received in Hollande' s fixative labelled Licha and #1 lesion right colon are four vaughan-garcia irregular soft tissues ranging from 0.2 x 0.2 x 0.2 cm to 0.3 x 0.3 x 0.2 cm. ??The specimens are entirely submitted as (A1) and (A2). Received in Hollande' s fixative labelled Licha and #2 polyp at 45 cm is a vaughan-garcia irregular 0.5 x 0.4 x 0.4 cm soft tissue fragment. ??The specimen is entirely submitted as (B). Received in Hollande' s fixative labelled Licha and #3 polyp at 30 cm are five vaughan-garcia irregular soft tissues ranging from 0.3 x 0.3 x 0.2 cm to 0.6 x 0.5 x 0.4 cm. ??The specimens are entirely submitted as (C1) and (C2). Received in Hollande' s fixative labelled Licha and #4 polyp at 15 cm are two vaughan-garcia irregular 0.4 x 0.2 x 0.2 cm soft tissue fragments. ??The specimens are entirely submitted as (D). ??(Santos Starr)/[facility] End of Report [facility] 08/21/1999 08/21/1999 15: 42 EDT Huber Sanon DO PATHOLOGY ORDER FELECIA [facility] [address] [place] [address] documented in this encounter Visit Diagnoses Not on filedocumented in this encounter Care Teams Silica Filter Operator Relationship Specialty Start Date End Date Hung Lopez MD PCP - General 04/08/09 12/14/17 documented as of this encounter
--- OUTSIDE RECORDS SUMMARY | 2023-12-28 21:01 | XMS_ITS | Referral Summary ---
Author Organization [facility] Address [address] [place] [address] Care Team Providers Care Host And Hostess Name Role Phone Helen Montez MD Primary Care Provider [phone] Allergies Active Allergy Reactions Criticality Noted Date [...] PVD (posterior vitreous detachment), both eyes 1 Social History Tobacco Use Types Packs/Day Years Used Date Smoking Tobacco: Never Smokeless Tobacco: Never Interpersonal Safety Answer Date Record ed Physically Hurt Never 10/15/2019 Verbally Threaten Not on file 10/15/2019 Sex and Gender Information Value Date Recorded Sex Assigned at Not on file Gender Identity Not on file Sexual Orientation Not on file Functional Status Functional Status Response Date of [...] concentrating, remembering, or making decisions? No 12/27/2018 Plan of Treatment Not on file Care Teams Host And Hostess Relationship Specialty Start Date End Date Helen Montez MD [address] [place] [address] PCP - General 12/15/17
--- OUTSIDE RECORDS SUMMARY | 2023-12-28 21:01 | XMS_ITS | Encounter Summary ---
Author Organization [facility] Address [address] [place] [address] Care Team Providers Care Business Information Analyst Name Role Phone Helen Montez MD Primary Care Provider [phone] Reason for Visit * Reason Comments Macular Degeneration Encounter Details Date Type Department Care Team (Late st Contact Info) Description 04/06/2019 9:[address] [facility] Ophthalmology - [address] [address] Sean Mendoza MD [address] [facility], [address] [place] [phone] Social History Tobacco Use Types Packs/Day Years [...] No 12/27/2018 documented as of this encounter Patient Instructions * Patient Instructions* Regis Kumar COA - 04/06/2019 9:15 EST Vitamin & Mineral Supplements and Your Eyes -Background Scientists have long debated whether taking vitamin and/or mineral supplements could help prevent, treat or cure certain eye conditions. Some early scientific studies seemed to show that supplements had the potential to prevent or slow the progression of cataracts and age-related macular degeneration (AMD), although more complete study was needed to answer some important questions: Which supplements are helpful for which condition(s)? Which patients will benefit from supplementation? What doses of supplements would benefit patients? What other effects might these supplements have on the body? A recent study, the Age-Related Eye Disease Study (AREDS), sought to address these questions, and seems to have given us some (but not all) of the answers to these questions. -What is AREDS? The Age-Related Eye Disease Study (AREDS) is a major study sponsored by the [employer] [place] (NEI), one of the Federal Government's National Institutes of Health, and conducted at [facility] research facilities around the country. In the study, scientists looked at the effects of zinc and antioxidants, and a combination of both,on patients with cataracts, and on those with varying stages and types of age-related macular degeneration (AMD). They also studied patients without evidence of cataract or AMD to determine if zinc and/or antioxidants can prevent the development of these conditions. -What were the results? The study showed a number of important things: High levels of antioxidants and zinc can reduce the risk of vision loss from advanced AMD by 19% inhigh-risk patients (patients with intermediate AMD or advanced AMD in one eye but not the other). Supplements do not provide significant benefit to patients with minimal AMD. These nutritional supplements do not prevent the initial development of AMD, nor do they improve vision already lost to AMD. Nutritional supplements do not seem to prevent cataracts, or to keep them from getting worse over time. While most patients in the study experienced no serious side effects from the doses of zinc and antioxidants used, a few taking zinc alone had urinary tract problems that required hospitalization. Some patients taking large doses of antioxidants experienced some yellowing of the skin. The long-termeffects of taking large doses of these supplements are still unknown. -Should I Take Nutritional Supplements? If you have intermediate AMD (or advanced AMD in one eye only), talk to your physician about takingnutritional supplements. He or she can help you determine if they may be beneficial - and safe - for you, and what types and doses of supplements to take. The doses used in the study were: -Vitamin C 500 mg -Vitamin E 400 IU -Zinc 80 mg, as zinc oxide -Copper 2 mg, as cupric oxide (copper should be taken with zinc, because high- dose zinc is associated with copper deficiency). -Lutein 10mg -Zeaxanthin 2mg It is very important to talk with your physician before taking large-dose supplements, and to follow his or her dosage recommendations carefully. Some supplements may interfere with each other or other medications. -Where Can I Get More Information? More information on AREDS is available from the [place] [employer] [place] of the National Institutes of Health, www.nei.nih.gov/amd. Your Eye M.D. is your best source of information about eye care. You can also get trustworthy information from the [place] [employer]'s partner Web site, EdPuzzle www.StarChase/MedLB/bufferpage aao.cfm. -What Should You Buy? To try to dispel some confusion about what AREDS preparation to take the preparation that seems to have the closest to what the AREDS study group suggest is the [employer] PreserVision Eye Vitamin and Mineral Supplement. It is a blue and orange (or blue and green) label and it says AREDS II (or 2) on it. You take 1 of these pills, which are Soft Gels, twice a day, with a full glass of water during a meal. documented in this encounter Progress Notes * Sean Mendoza MD - 04/06/2019 0915 EST Chief Complaint Patient presents with ??? Macular Degeneration Comments Wet AMD left eye and Dry AMD right eye. HPI Location: Left eye Pain: 0 - No pain Quality: Severity: Duration: Months Timing: Constant Lasts: Continuous Context: Wet AMD left eye Modifying factors: possible injection today Associated Signs & Symptoms: blurry vision left eye Visual Fluctuations: Floaters Attestation: Wet AMD left eye. ES. Dry AMD right eye. VA severe depressed left. For weeks. Constant. No new F and F. No pain. Base Eye Exam Visual Acuity (Snellen - Linear) Right Left Dist sc 20/30 -1 20/250 Dist ph sc NI Tonometry (Applanation, 10:07) Right Left Pressure 21 19 Pupils Pupils Right PERRL Left PERRL Neuro/Psych Oriented x3: Yes Mood/Affect: Normal Dilation Both eyes: Mydriacyl 1.0%, Phenylephrine 2.5% @ 10:07 Slit Lamp and Fundus Exam Slit Lamp Exam Right Left Lids/Lashes Normal Normal Conjunctiva/Sclera White and quiet White and quiet Cornea endo pigment and sulzman nodules endo pigment and sulzman nodules Anterior Chamber Deep and quiet Deep and quiet Iris Round and reactive Dilated Lens Posterior chamber intraocular lens Posterior chamber intraocular lens; Vitreous Posterior vitreous detachment Posterior vitreous detachment Fundus Exam Right Left Disc Peripapillary atrophy Peripapillary atrophy C/D Ratio 0.5 0.6 Macula small drusen, extrafoveal GA Subretinal fibrosis; SRF; Vessels Normal Normal Periphery attached attached Please refer to large retinal drawing. IMAGING: OCT, Retina - OU - Both Eyes Right Eye Quality was good. Scan locations included subfoveal. Findings include (Drusen; GA; No fluid. OCT-A:poor signal). Left Eye Quality was good. Scan locations included subfoveal. Findings include (SR Fibrosis, Atrophy, IRF, SRF.). DIAGNOSES: 1. Exudative age-related macular degeneration of left eye with active choroidal neovascularization (HCC-CMS) OCT, RETINA - OU - BOTH EYES 2. 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 PVD (posterior vitreous detachment), both eyes Assessment Advanced non-exudative AMD with geographic atrophy sparing fovea right eye No sign of CNV on exam, OCT, IVFA and ICGA. Start AREDS 2 vitamins to reduce risk of vision loss Handout printed for pt. Monitor Wet AMD left eye Fibrotic scar. Near end stage disease. Minimal benefits of Anti Vegf treatment at this time. Risks outweigh benefits. Monitor for now. ?? PVD both eyes Longstanding, asymptomatic Retina attached w/o predisposing lesions Monitor F/u in 3 mos. OCT. ?? I have reviewed the past medical, family, [...] while he is personally performing the service. 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 Scan locations included subfoveal. Findings include (Drusen; GA; No fluid. OCT-A: poor signal). Left Eye Quality was good. Scan locations included subfoveal. Findings include (SR Fibrosis, Atrophy, IRF, SRF.). 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 PVD (posterior vitreous detachment), both eyes Vitreous degeneration documented in this encounter Eye Exam Visual Acuity (Snellen - Linear) Right eye Left eye Dist sc 20/30 -1 20/250 Dist ph sc NI Tonometry (Applanation, 10:07) Right eye Left eye Pressure 21 19 Pupils Pupils Right eye PERRL Left eye PERRL Neuro/Psych Oriented x3: Yes Mood/Affect: Normal Dilation Both eyes: Mydriacyl 1.0%, P henylephrine 2.5% @ 10:07 Slit Lamp Exam Right eye Left eye Lids/Lashes Normal Normal Conjunctiva/Sclera White and quiet White and bill et Cornea endo pigment and sulzman nodules endo pigment and sulzman nodules Anterior Chamber Deep and quiet Deep and quiet Iris Round and reactive Dilated Lens Posterior chamber in traocular lens Posterior chamber intraocular lens; Vitreous Posterior vitreous detachment Po sterior vitreous detachment Fundus Exam Right eye Left eye Disc Peripapillary atrophy Peripapill papi atrophy C/D Ratio 0.5 0.6 Macula small drusen, extrafoveal GA Sub retinal fibrosis; SRF; Vessels Normal Normal Periphery attached attached Care Teams Business Information Analyst Relationship Specialty Start Date End Date Helen Montez MD [address] [place] [address] PCP - General 12/15/17 documented as of this encounter
--- OUTSIDE RECORDS SUMMARY | 2023-12-28 21:01 | XMS_ITS | Encounter Summary ---
Author Organization [facility] Address [address] [place] [address] Care Team Providers Care Mind Reader Name Role Phone Helen Montez MD Primary Care Provider [phone] Reason for Visit * Reason Onset Date Comments Research 01/19/2019 Encounter Details Date Type Department Care Team (Late st Contact Info) Description 01/19/2019 Telephone [facility] Ophthalmology - [facility] [address] [place] [address] Sean Mendoza MD [address] [facility], [address] [place] [phone] Research Social History Tobacco Use Types Packs/Day [...] * Telephone Encounter - Nilda Gagnon - 01/19/2019 1040 EST [facility] - Office of Clinical Trials Telephone Call [facility]: [phone] Protocol: Panda-2 Treating Paperhanger: Dr. Sean Mendoza Date: 01/19/2019 Reason For Call: Informed Consent Sarah called me yesterday to ask if I had received her email last week about alternative ways for her to receive the consent form. I had received it and replied that day (01/11), but it seems that shedid not receive my response. She suggested having her Group[employer]'s IT contact reach out about setting up a etaskr drop box. When Sarah's IT contact Eileen emailed me from etaskr, I tried sending the consent form to her [employer] account, which seemed to work. Sarah should have the consent form at this point and is aware that the scheduling of Zeynep's appointment is time sensitive due to the nature of wet AMD. documented in this encounter Plan of Treatment Not on file documented as of this encounter Visit Diagnoses Not on filedocumented in this encounter Care Teams Mind Reader Relationship Specialty Start Date End Date Helen Montez MD [address] [place] [address] PCP - General 12/15/17 documented as of this encounter
--- OUTSIDE RECORDS SUMMARY | 2023-12-28 21:01 | XMS_ITS | Encounter Summary ---
Author Organization [facility] Address [address] [place] [address] Care Team Providers Care Public Health Policy Analyst Name Role Phone Hung Rodarte MD Primary Care Provider Unavail able Encounter Details Date Type Department Care Team (Late st Contact Info) Description 08/28/2005 Results Only [facility] - Maple conversion [address] [place] [address] Huber Sanon, DO [address] [facility] [address] [place], [place] [id number] Social History Tobacco Use Types Packs/Day Years Used Date Smoking Tobacco: Never Assessed Sex and Gender Information Value Date Recorded Sex Assigned at Not on file Gender Identity Not on file Sexual Orientation Not on file documented as of this encounter Plan of Treatment Not on file documented as of this encounter Procedures Procedure Name Priority Date/Time Associated Diagnosis Comments SURGICAL PATHOLOGY Routine 08/28/2005 0:00 EDT documented in this encounter Results * SURGICAL PATHOLOGY (08/28/2005 0:00 EDT) Pathology Report: SURGICAL PATHOLOGY REPORT Reports generated via electronic interface contain original data; however they are lacking the format of the original report. Caution should be taken when reading/interpreti ng unformatted reports. Name: ? AMAURY DAVIES ? Accession #: ? [id number] ? : ? 1935 (Age: 70) ??F ? Collect Date: ? 08/28/2005 ? Location: ? [facility] ? Receive Date: ? 08/28/2005 ? Provider: HUBER SANON DO Copy to: HUNG RODARTE MD ? Final Pathologic Diagnosis: ? Colon, 20 cm, polyp, biopsy: - Inflamed tubular adenoma with focally complex architecture. ??See comment. Comment: ? The biopsy demonstrates a small tubular adenoma (1.2 mm). ??The surface is inflamed and the architecture is focally complex. ??No definitive intramucosal or invasive carcinoma is identified. ??Clinical correlation is suggested particularly if this is from the region of the previous colon carcinoma or is a biopsy of a larger lesion. (Dr. Miranda Martinez)/[facility] Document reviewed and electronically signed by: Sundeep Rice MD Report ??Date: 09/01/2005 17:32 By the signature above, the attending physician certifies that he/she has personally conducted a gross and/or microscopic examination of the described specimens and rendered or confirmed the above diagnosis. Specimen(s) Received: ? Bx 20 cm Clinical History: ? Colonoscopy [facility] colon ca Gross Description: ? Received in Hollande's fixative labelled Licha and polyp 20 cm is a 0.3 x 0.2 x 0.1 cm irregular piece of soft tissue. ??The specimen is submitted entirely in one cassette. (Miranda Horner/mpl End of Report CUONG BARRIENTOS 08/28/2005 08/28/2005 7:4 1 EDT Huber Sanon DO PATHOLOGY ORDER FELECIA CUONG BARRIENTOS [address] [place] [address] documented in this encounter Visit Diagnoses Not on filedocumented in this encounter Care Teams Public Health Policy Analyst Relationship Specialty Start Date End Date Hung Rodarte MD PCP - General 04/08/09 12/14/17 documented as of this encounter
--- OUTSIDE RECORDS SUMMARY | 2023-12-28 21:01 | XMS_ITS | Encounter Summary ---
Author Organization [facility] Address [address] [place] [address] Care Team Providers Care Orientation And Mobility Instructor Name Role Phone Unavailable Primary Care Provider Unavailabl e Encounter Details Date Type Department Care Team (Late st Contact Info) Description 06/26/2008 Before PRISM Converted Visit (Maple) [facility] - Maple conversion [address] [place] [address] Huber Sanon, DO [address] [facility] [address] [place], [place] [id number] Social History Tobacco Use Types Packs/Day Years Used Date Smoking Tobacco: Never Assessed Sex and Gender Information Value Date Recorded Sex Assigned at Not on file Gender Identity Not on file Sexual Orientation Not on file documented as of this encounter Plan of Treatment Not on file documented as of this encounter Procedures Procedure Name Priority Date/Time Associated Diagnosis Comments SURGICAL PATHOLOGY Routine 06/26/2008 0:00 EDT documented in this encounter Results * SURGICAL PATHOLOGY (06/26/2008 0:00 EDT) Pathology Report: SURGICAL PATHOLOGY REPORT ? Reports generated via electronic interface contain original data; ? however they are lacking the format of the original report. ? Caution should be taken when reading/interpreting unformatted reports. ? Name: ? SAMSON, AMAURY J ? Accession #: ? [id number] ? : ? 1935 (Age: 73) ??F ? Collect Date: ? 06/26/2008 ? Location: ? [facility] ? Receive Date: ? 06/26/2008 ? Provider: HUBER SANON DO ? Copy to: YOEL RODARTE MD ? Final Pathologic Diagnosis: ? A. ?Colon, 45 cm, polyp, biopsy: ? 1. ?Hyperplastic polyp. ??See comment. ? B. ?Rectum, polyp, biopsy: ? 1. ?Tubular adenoma. ? Comment: ? This case has been reviewed at the intradepartmental consultation ? conference. ??(Dr. Arriaza)/mpl ? Document reviewed and electronically signed by: ? HILDA DAR MD ? Report ??Date: 06/30/2008 17:12 ? By the signature above, the attending physician certifies that he/she has ? personally conducted a gross and/or microscopic examination of the described ? specimens and rendered or confirmed the above diagnosis. ? Specimen(s) Received: ? A. ??Polyp at 45 cm ? B. ??2 rectal polyps ? Clinical History: ? Hx colon Ca (T2N1 adenoca) and right hemicolectomy 9 years ago ? Gross Description: ? Received in Hollande's fixative labelled Samson, Amaury and polyp at ?? 45 is a 0.3 x 0.2 x 0.2 cm biopsy. ??The specimen is submitted intact as (A). ? Received in Hollande's fixative labelled Samson, Amaury and rectal polyp is a 0.2 x 0.2 x 0.2 cm biopsy. ??The specimen is submitted intact as (B). ??(J.D. ?? Tessitore)/mpl ? End of Report ? CUONG BARRIENTOS 06/26/2008 06/26/2008 10: 18 EDT Huber Sanon DO PATHOLOGY ORDER FELECIA CUONG BARRIENTOS [address] [place] [address] documented in this encounter Visit Diagnoses Not on filedocumented in this encounter
--- NOTE | 2023-12-28 21:15 | DI.CT_ITS ---
Exam(s) CT CHEST PE CTA EXAM: CT CHEST PE CTA CLINICAL HISTORY: shortness of breath, hypoxia. TECHNIQUE: Imaging Protocol: Axial CT angiography was performed with multi-slice acquisition and mu lti-planar and/or 3D reconstructions. CONTRAST MATERIAL: Intravenous: Omnipaque 350 contrast volume:[address] CHEST/ABD/PEL W from 12/18/2020 CR,XR XR PORTABLE CHEST AP from 05/14/2023 FINDINGS: The examination is limited due to patient motion artifact. The apex of the left lung was not included on this examination. Tracheobronchial tree: Patent where visualized. No bronchiectasis. Pulmonary parenchyma: No consolidation or dominant measurable mass. No architectural distortion. Stab le 2 mm nodule in the lateral aspect of the left upper lobe (series 7, image 42). No follow-up is re commended. Pulmonary Arteries: No evidence of filling defect to suggest pulmonary emboli. Mediastinum and Sara: No dominant adenopathy or fluid collection. The esophagus is unremarkable. Th ere is a moderate hiatal hernia. Visualized thyroid gland: Unremarkable. Pleura: No effusion or pneumothorax. Heart: The heart is not dilated. Coronary artery calcification is present. No pericardial effusion. Aorta: Thoracic aorta non-dilated. Atherosclerotic calcification is present. No dissection is visual ized. Upper abdomen: Unremarkable. Soft tissues: Unremarkable. Bones: Within normal limits for the patient's age.There is new mild anterior wedging of the T12 verte bral body since 2020. It does not appear acute. IMPRESSION: No evidence of pulmonary embolism, thoracic aortic dissection or aneurysm. RADIATION DOSE DELIVERED: 43.17mGy.cm Total DLP DATA REPOSITORY: All CT scans at this facility are submitted to the National Radiology Data Registry (NRDR) Dose Index Registry (DIR) with the [employer] (ACR). RADIATION OPTIMIZATION: All CT scans at this facility use at least one of these dose optimization te chniques: automated exposure control; mA and/or kV adjustment per patient size (includes targeted exa ms where dose is matched to clinical indication); or iterative reconstruction.
[2023-12-28] MEDS: Albuterol/Ipratropium 3 ML UPD VIAL UPD (21:16)
[2023-12-28 22:06] LABS: BE (Venous) 8 mmol/L (-2-3); HCO3 (Venous) 33 mmol/L (23-28); O2 Sat (Venous) 55 %; TCO2 (Venous) 30 mmol/L (24-29); pCO2 (Venous) 52 mmHg (41-51); pH (Venous) 7.41 (7.31-7.41); pO2 (Venous) 29 mmHg
[2023-12-28 22:08] LABS: Abs Immature Grans 0.01 10^3/uL (0.0-0.06); Absolute Basophil Count 0.05 10^3/uL (0.0-0.2); Absolute Eosinophil Count 0.24 10^3/uL (0.0-0.7); Absolute Lymphocyte Count 0.98 10^3/uL (1.2-3.4); Absolute Monocyte Count 0.45 10^3/uL (0.1-0.8); Absolute Neutrophil Count 3.76 10^3/uL (1.2-6.7); Basophils % 0.9 %; Eosinophils % 4.4 %; HCT 40.6 % (36.0-46.0); HGB 13.1 g/dL (11.2-15.7); Immature Grans % 0.2 %; Lymphocytes % 17.9 %; MCH 30.5 pg (27.0-33.0); MCHC 32.3 % (32.0-36.0); MCV 95 fL (80-95); MPV 9.4 fL (8.0-11.0); Monocytes % 8.2 %; Neutrophils % 68.4 %; Platelet Count 223 10^3/uL (130-400); RBC 4.29 10^6/uL (3.93-5.22); RDW 12.7 % (11.7-14.6); RDW-SD 44.3 fL; WBC 5.49 10^3/uL (4.4-10.8)
[2023-12-28] MEDS: Omnipaque 350 MG/ML 100 ML BTL IJ (22:17)
[2023-12-28] MEDS: Normal Saline - Diluent 50 ML VIAL IJ (22:19)
[2023-12-28] MEDS: Normal Saline Flush 10 ML SYR IVP (22:20)
[2023-12-28 22:32] LABS: ALT 14 U/L (14-59); AST 18 U/L (15-37); Albumin 3.2 g/dL (3.4-5.0); Alkaline Phosphatase 44 U/L (46-116); Anion Gap 7.8 mmol/L (3-11); BUN 12 mg/dL (7-18); Bilirubin, Total 0.43 mg/dL (0.2-1.0); CO2 31.2 mmol/L (21.0-32.0); CREATININE 0.7 mg/dL (0.55-1.02); Calcium 9.6 mg/dL (8.5-10.1); Chloride 106 mmol/L (98-107); Estimated GFR 84.17 (mL/min/1.73m2); Glucose 116 mg/dL (74-106); NT-proBNP 314 pg/mL (<300); Sodium 145 mmol/L (136-145); Total Protein 6.5 g/dL (6.4-8.2); Troponin I 35 ng/L (<or=51)
[2023-12-28] MEDS: methylPREDNISolone SUCC 125 MG VIAL 80 MG IVP (22:46)
--- NOTE | 2023-12-28 22:46 | DI.VRAD_ITS ---
PROCEDURE INFORMATION: Exam: CTA Chest With Contrast Exam date and time: 12/28/2023 10:08 PM Age: 88 years old Clinical indication: Shortness of breath and other: Hypoxia; Patient HX: SOB, hypoxia TECHNIQUE: Imaging protocol: Computed tomographic angiography of the chest with contrast. Exam focused on the arteries. 3D rendering (Not supervised by radiologist): MIP and/or 3D reconstructed images were created by the technologist. Radiation optimization: All CT scans at this facility use at least one of these dose optimization techniques: automated exposure control; mA and/or kV adjustment per patient size (includes targeted exams where dose is matched to clinical indication); or iterative reconstruction. Contrast material: OMNIPAQUE 350; Contrast volume: 60 ml; Contrast route: INTRAVENOUS (IV); COMPARISON: CT CHEST/ABD/PEL W 12/18/2020 12:49 PM FINDINGS: Pulmonary arteries: Normal. No pulmonary emboli. Aorta: Unremarkable. No aortic aneurysm. No aortic dissection. Lungs: Minimal bilateral lower lobe mucous plugging. No acute pulmonary infiltrate. Pleural spaces: Unremarkable. No pneumothorax. No pleural effusion. Heart: Unremarkable. No cardiomegaly. No pericardial effusion. Lymph nodes: Unremarkable. No enlarged lymph nodes. Diaphragm: Small hiatal hernia. Bones/joints: Unremarkable. No acute fracture. Soft tissues: Unremarkable. IMPRESSION: Minimal bilateral lower lobe mucous plugging. Dictated and Authenticated by: Nathan Acosta MD. Ordering:DERRICK Casillas MD
[2023-12-28 22:47] LABS: COVID-19 PCR Negative (Negative); Influenza A PCR Negative (Negative); Influenza B PCR Negative (Negative); RSV PCR Negative (Negative)
[2023-12-28 22:48] LABS: Source Nasopharynx
[2023-12-28] MEDS: Cefuroxime 500 MG TAB PO (23:22)
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
== END 2023-12-28 23:23 | disposition home or self-care (01) ==
PROVIDERS: Emergency Provider Physician Assistant; PCP Nurse Practitioner Family
DX: J44.1 Chronic obstructive pulmonary disease with (acute) exacerbation (principal); E78.5 Hyperlipidemia, unspecified; Z79.899 Other long term (current) drug therapy; Z88.0 Allergy status to penicillin; Z88.1 Allergy status to other antibiotic agents
CPT/HCPCS: 36415; 71275; 80053; 82805; 87637; 93005; 94640; 96374; 99285; 83880; 84484; 85025; 93010; 99284; J2919; J3490; J7620

== ENCOUNTER 2024-11-23 14:43 | Outpatient (CLI) | payer MEDICARE, SELFPAY ==
[2024-11-23 17:08] LABS: Hemoglobin A1C 5.5 % (<5.7)
[2024-11-23 17:33] LABS: ALT 20 U/L (14-59); AST 21 U/L (15-37); Albumin 3.3 g/dL (3.4-5.0); Alkaline Phosphatase 47 U/L (46-116); Anion Gap 5.1 mmol/L (3-11); BUN 13 mg/dL (7-18); Bilirubin, Total 0.4 mg/dL (0.2-1.0); CO2 29.9 mmol/L (21.0-32.0); Calcium 9.2 mg/dL (8.5-10.1); Calculated LDL 130 mg/dL (<100); Chloride 105 mmol/L (98-107); Cholesterol 221 mg/dL (<200); Estimated GFR 86.82 (mL/min/1.73m2); Glucose 112 mg/dL (74-106); HDL Cholesterol 78 mg/dL (>or=50); Potassium 3.7 mmol/L (3.5-5.1); Sodium 140 mmol/L (136-145); Total Protein 6.6 g/dL (6.4-8.2); Triglyceride 67 mg/dL (<150)
== END 2024-11-23 14:44 | disposition home or self-care (01) ==
LOC: LOS 14:44
PROVIDERS: PCP Nurse Practitioner Family; Visit Provider Nurse Practitioner Family
DX: E78.5 Hyperlipidemia, unspecified (principal); Z00.00 Encounter for general adult medical examination without abnormal findings; F41.9 Anxiety disorder, unspecified; F32.9 Major depressive disorder, single episode, unspecified; J44.9 Chronic obstructive pulmonary disease, unspecified; R73.01 Impaired fasting glucose
CPT/HCPCS: 36415; 80053; 80061; 83036